=== PATIENT | female | born 1965 | race Caucasian/White ===

== ENCOUNTER 2018-02-15 10:13 | Emergency (ER) | payer BC ==
[2018-02-15] MEDS ORDERED: HYDROCODONE/APAP 5/325 MG TAB ONE (11:17)
--- NOTE | 2018-02-15 12:24 | RAD REPORT ---
EXAM DESCRIPTION: RAD - Shoulder Left 2 View - 02/15/2018 12:15 pm CLINICAL HISTORY: Left shoulder pain status post fall FINDINGS: No fracture or dislocation is seen.
--- NOTE | 2018-02-15 12:25 | RAD REPORT ---
EXAM DESCRIPTION: RAD - Humerus Left - 02/15/2018 12:15 pm CLINICAL HISTORY: Left arm pain status post fall FINDINGS: No fracture is seen
--- NOTE | 2018-02-15 13:00 | ER ---
Nurse's Notes [facility] Name: Corrine Rsoario Age: 52 yrs Sex: Female : 1965 Arrival Date: 02/15/2018 Time: 10:14 Bed 11 Private MD: JIM SALINAS Diagnosis: Strain of muscle(s) and tendon(s) of the rotator cuff of left shoulder;Strain of muscle, fascia and tendon of other parts of biceps, left arm Presentation: 02/15 10:24 Presenting complaint: Patient states: Patient reports she was texting last night, ss walked off a curb and fell from a standing position into grass onto L hand, hurting her L shoulder. Transition of care: patient was not received from another setting of care. Onset of symptoms was February 14, 2018. Risk Assessment: Do you want to hurt yourself or someone else? Patient reports no desire to harm self or others. Initial Sepsis Screen: Does the patient meet any 2 criteria? No. Patient's initial sepsis screen is negative. Does the patient have a suspected source of infection? No. Patient's initial sepsis screen is negative. Care prior to arrival: None. 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 - Social history:: Smoking status: Patient/guardian denies using tobacco. - Ebola Screening: : Patient denies exposure to infectious person Patient denies travel to an Ebola-affected area in the 21 days before illness onset. Screenin:31 Abuse screen: Denies threats or abuse. Denies injuries from another. hb 10:31 Nutritional screening: No deficits noted. Tuberculosis screening: No symptoms or risk hb factors identified. Fall Risk None identified. Assessment: 10:30 General: Appears in no apparent distress. Behavior is calm, cooperative. Pain: hb Complains of pain in left arm Pain currently is 8 out of 10 on a pain scale. Neuro: Level of Consciousness is awake, alert, obeys commands, Oriented to person, place, time, situation. Cardiovascular: Capillary refill < 3 seconds Patient's skin is warm and dry. Respiratory: Airway is patent Respiratory effort is even, unlabored, Respiratory pattern is regular, symmetrical. GI: No signs and/or symptoms were reported involving the gastrointestinal system. : No signs and/or symptoms were reported regarding the genitourinary system. EENT: No signs and/or symptoms were reported regarding the EENT system. Derm: No signs and/or symptoms reported regarding the dermatologic system. Skin is intact, is healthy with good turgor. Musculoskeletal: Reports pain in left arm. 11:30 Reassessment: Patient appears in no apparent distress at this time. No changes from hb previously documented assessment. Patient and/or family updated on plan of care and expected duration. Pain level reassessed. Patient is alert, oriented x 3, equal unlabored respirations, skin warm/dry/pink. Vital Signs: 10:26 BP 133 / 72; Pulse 75; Resp 16; Temp 98.2(O); Pulse Ox 97% on R/A; Weight 92.08 kg; ss Height 5 ft. 0 in. (152.40 cm); Pain 8/10; 10:26 Body Mass Index 39.65 (92.08 kg, 152.40 cm) ss ED Course: 10:14 Patient arrived in ED. sb2 10:14 JIM SALINAS is Private Physician. sb2 10:25 Triage completed. ss 10:26 Arm band placed on right wrist. ss 10:31 Patient has correct armband on for positive identification. Call light in reach. hb 11:00 Rio Macdonald NP is PHCP. pm1 11:00 Porfirio Lucas MD is Attending Physician. pm1 12:07 X-ray completed. Portable x-ray completed in exam room. Patient tolerated procedure la2 well. 12:14 Shoulder Left (2 View) XRAY In Process Unspecified. EDMS 12:15 Humerus Left XRAY In Process Unspecified. EDMS 12:57 Maikol Baxter MD is Referral Physician. pm1 13:01 Zuri Santana, CESILIA is Primary Nurse. hb 13:04 No provider procedures requiring assistance completed. Patient did not have IV access hb during this emergency room visit. Administered Medications: 11:15 Drug: Seltzer 5 mg-325 mg 1 tabs Route: PO; hb 13:05 Follow up: Response: No adverse reaction; Pain is decreased hb Outcome: 12:59 Discharge ordered by . pm1 13:04 Discharged to home ambulatory. 13:04 Condition: good 13:04 Discharge instructions given to patient, Instructed on discharge instructions, follow up and referral plans. medication usage, Demonstrated understanding of instructions, follow-up care, medications. 13:05 Patient left the ED. Signatures: Dispatcher [employer] EDMS Sagrario Law RN RN Rio Macdonald NP RETAIL MARKETING MANAGER pm1 Zuri Santana RN RN Michelle Senior la2 Yue Bruno sb2
--- NOTE | 2018-02-15 13:00 | EDPHYS ---
Physician Documentation [facility] Name: Corrine Rosario Age: 52 yrs Sex: Female : 1965 Arrival Date: 02/15/2018 Time: 10:14 Bed 11 Private MD: JIM SALINAS ED Physician Porfirio Lucas HPI: 02/15 11:07 This 52 yrs old Female presents to ER via Ambulatory with complaints of Fall pm1 Injury - Left shoulder. 11:07 Details of fall: The patient fell from an upright position, while walking. Onset: The pm1 symptoms/episode began/occurred last night. 11:07 Associated injuries: The patient sustained anterior aspect of left shoulder and left pm1 bicep. Severity of symptoms: in the emergency department the symptoms are unchanged. The patient has not experienced similar symptoms in the past. The patient has not recently seen a physician. Patient was walking while texting and she walked off the curb and fell. Patient feel with left hand out and complaining of pain to left shoulder and left upper arm. No headache, neck pain, head injury, or LOC. 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 - Social history:: Smoking status: Patient/guardian denies using tobacco. - Ebola Screening: : Patient denies exposure to infectious person Patient denies travel to an Ebola-affected area in the 21 days before illness onset. ROS: 11:11 Constitutional: Negative for fever, chills, and weight loss, Eyes: Negative for injury, pm1 pain, redness, and discharge, ENT: Negative for injury, pain, and discharge, Neck: Negative for injury, pain, and swelling, Cardiovascular: Negative for chest pain, palpitations, and edema, Respiratory: Negative for shortness of breath, cough, wheezing, and pleuritic chest pain, Abdomen/GI: Negative for abdominal pain, nausea, vomiting, diarrhea, and constipation, Back: Negative for injury and pain. 11:11 Skin: Negative for injury, rash, and discoloration, Neuro: Negative for headache, weakness, numbness, tingling, and seizure. 11:11 MS/extremity: Positive for pain, of the anterior aspect of left shoulder and left bicep, Negative for decreased range of motion, deformity. Exam: 11:11 Constitutional: This is a well developed, well nourished patient who is awake, alert, pm1 and in no acute distress. Head/Face: Normocephalic, atraumatic. Eyes: Pupils equal round and reactive to light, extra-ocular motions intact. Lids and lashes normal. Conjunctiva and sclera are non-icteric and not injected. Cornea within normal limits. Periorbital areas with no swelling, redness, or edema. ENT: Nares patent. No nasal discharge, no septal abnormalities noted. Tympanic membranes are normal and external auditory canals are clear. Oropharynx with no redness, swelling, or masses, exudates, or evidence of obstruction, uvula midline. Mucous membranes moist. Neck: Trachea midline, no thyromegaly or masses palpated, and no cervical lymphadenopathy. Supple, full range of motion without nuchal rigidity, or vertebral point tenderness. No Meningismus. Chest/axilla: Normal chest wall appearance and motion. Nontender with no deformity. No lesions are appreciated. Cardiovascular: Regular rate and rhythm with a normal S1 and S2. No gallops, murmurs, or rubs. Normal PMI, no JVD. No pulse deficits. Respiratory: Lungs have equal breath sounds bilaterally, clear to auscultation and percussion. No rales, rhonchi or wheezes noted. No increased work of breathing, no retractions or nasal flaring. Abdomen/GI: Soft, non-tender, with normal bowel sounds. No distension or tympany. No guarding or rebound. No evidence of tenderness throughout. Back: No spinal tenderness. No costovertebral tenderness. Full range of motion. Skin: Warm, dry with normal turgor. Normal color with no rashes, no lesions, and no evidence of cellulitis. 11:11 Musculoskeletal/extremity: Extremities: grossly normal except: ROM: full passive range of motion, in the left shoulder, Circulation is intact in all extremities. Pulses: Sensation intact. tenderness to left biceps and anterior aspect of left shoulder. 11:11 Neuro: Orientation: is normal, Motor: is normal, moves all fours. Vital Signs: 10:26 BP 133 / 72; Pulse 75; Resp 16; Temp 98.2(O); Pulse Ox 97% on R/A; Weight 92.08 kg; ss Height 5 ft. 0 in. (152.40 cm); Pain 8/10; 10:26 Body Mass Index 39.65 (92.08 kg, 152.40 cm) ss MDM: 11:00 Patient medically screened. pm1 12:57 Data reviewed: vital signs. Counseling: I had a detailed discussion with the patient pm1 and/or guardian regarding: the historical points, exam findings, and any diagnostic results supporting the discharge/admit diagnosis, radiology results, the need for outpatient follow up, to return to the emergency department if symptoms worsen or persist or if there are any questions or concerns that arise at home. 02/15 11:04 Order name: Shoulder Left (2 View) XRAY; Complete Time: 12:56 pm1 02/15 11:04 Order name: Humerus Left XRAY; Complete Time: 12:56 pm1 02/15 11:04 Order name: Sling; Complete Time: 11:27 pm1 Administered Medications: 11:15 Drug: [place] 5 mg-325 mg 1 tabs Route: PO; hb 13:05 Follow up: Response: No adverse reaction; Pain is decreased hb Disposition: 02/15/18 12:59 Discharged to Home. Impression: Strain of muscle(s) and tendon(s) of the rotator cuff of left shoulder, Strain of muscle, fascia and tendon of other parts of biceps, left arm. - Condition is Stable. - Discharge Instructions: Musculoskeletal Pain, Shoulder Pain. - Prescriptions for Tylenol- Codeine #3 300-30 mg Oral Tablet - take 2 tablets by ORAL route every 6 hours As needed; 20 tablet. Diclofenac Sodium 75 mg Oral Tablet Sustained Release - take 1 tablet by ORAL route 2 times per day; 30 tablet. - Medication Reconciliation Form, Thank You Letter, Antibiotic Education, Prescription Opioid Use form. - Follow up: Emergency Department; When: As needed; Reason: Worsening of condition. Follow up: Maikol Baxter MD; When: 2 - 3 days; Reason: Recheck today's complaints, Continuance of care, Re-evaluation by your physician. - Problem is new. - Symptoms have improved. Addendum: 02/17/2018 11:16 Co-signature as Attending Physician, Porfirio Lance MD I agree with the assessment and w a plan of care. Signatures: Dispatcher [employer] EDMS Sagrario Law RN RN ss Rio Macdonald, DIRECTOR OF OUTSIDE SALES DIRECTOR OF OUTSIDE SALES pm1 Zuri Santana RN RN hb Porfirio Lucas MD MD wa Corrections: (The following items were deleted from the chart) 02/15 13:05 12:59 02/15/2018 12:59 Discharged to Home. Impression: Strain of muscle(s) and hb tendon(s) of the rotator cuff of left shoulder; Strain of muscle, fascia and tendon of other parts of biceps, left arm. Condition is Stable. Forms are Medication Reconciliation Form, Thank You Letter, Antibiotic Education, Prescription Opioid Use. Follow up: Emergency Department; When: As needed; Reason: Worsening of condition. Follow up: Maikol Baxter; When: 2 - 3 days; Reason: Recheck today's complaints, Continuance of care, Re-evaluation by your physician. Problem is new. Symptoms have improved. pm1
== END 2018-02-15 13:05 | disposition home or self-care (01) ==
LOC: ER 10:13
DX: S46.012A Strain of muscle(s) and tendon(s) of the rotator cuff of left shoulder, initial encounter (principal); S46.212A Strain of muscle, fascia and tendon of other parts of biceps, left arm, initial encounter; W10.1XXA Fall (on)(from) sidewalk curb, initial encounter; Y93.C2 Activity, hand held interactive electronic device; Y92.480 Sidewalk as the place of occurrence of the external cause
CPT/HCPCS: 99283

== ENCOUNTER 2019-05-26 04:41 | Emergency (ER) | payer BC ==
--- OUTSIDE RECORDS SUMMARY | 2019-05-26 04:43 | XMS REPORT ---
:1965 [facility] Address [address] [place] [address] Dr. Simental [address] [place] [id number] Care Team Providers Name Role Phone Unavailable Unavailable Unavailable Problems This patient has no known problems. Allergies, Adverse Reactions, Alerts This patient has no known allergies or adverse reactions. Medications This patient has no known medications.
--- OUTSIDE RECORDS SUMMARY | 2019-05-26 04:44 | XMS REPORT | Summary of Care ---
:1965 Author Organization [facility] - Health Address [address] [place] [id number] Care Team Providers Name Role Phone Ansley Calle MD Unavailable Pamela Lemus MD Primary Care Provider Reason for Visit Reason Comments Refill Request Encounter Details Date Type Department Care Team Description 01/22/2019 Refill [facility] Pediatric and Pamela Lemus, Refill Request Adult Primary Care- [place] [address] [facility] [address] [place] [address] [place] [address] Allergies Active Allergy Reactions Severity Noted Date Comments Aspirin Unknown - See comments 07/30/2017 Sick to stomach Codeine Unknown - See comments 07/30/2017 Sick to stomach. documented as of this encounter (statuses as of 01/26/2019) Medications Medication Sig Dispensed Refills Start Date End Date Status diclofenac 75 mg EC Take 1 tablet 180 tablet 3 03/03/2018 Active tabletIndications: by mouth 2 Chronic left (two) times shoulder pain daily with meals. gabapentin 600 mg Take 1.5 135 tablet 3 05/06/2018 Active tabletIndications: tablets by Left arm pain, mouth 3 Chronic left (three) times shoulder pain, daily. Muscle spasm, Other chronic pain prazosin 1 mg Take 2 180 capsule 0 07/09/2018 Active capsuleIndications: capsules by PTSD (post-traumatic mouth at stress disorder) bedtime. mupirocin 2 % Apply to 22 g 0 09/17/2018 Active ointmentIndications: area(s) 3 Laceration of left (three) times thumb without daily. foreign body without damage to nail, initial encounter traMADOL 50 mg Take 1 tablet 84 tablet 0 12/03/2018 Active tabletIndications: by mouth Chronic low back every 8 pain, unspecified (eight) hours back pain as needed laterality, with (for pain not sciatica presence improved with unspecified, Left gabapentin). arm pain, Chronic left shoulder pain, Muscle spasm, Other chronic pain desvenlafaxine Take 1 tablet 90 tablet 1 01/09/2019 Active succinate 100 mg 24 by mouth hr daily. tabletIndications: PTSD (post-traumatic stress disorder) TIZANIDINE 4 mg TAKE 1 TABLET 90 tablet 1 01/25/2019 Active tabletIndications: BY MOUTH Chronic left EVERY 8 shoulder pain (EIGHT) HOURS NEEDED FOR PAIN (SCALE 4-6). TIZANIDINE 4 mg TAKE 1 TABLET 90 tablet 1 12/29/2018 Discontinued tabletIndications: BY MOUTH 9 Chronic left EVERY 8 shoulder pain (EIGHT) HOURS NEEDED FOR PAIN (SCALE 4-6). 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) 07/30/2017 Subacromial bursitis of left shoulder joint 07/30/2017 H/O rheumatoid arthritis 07/30/2017 Polyarthralgia 07/30/2017 Chronic fatigue 07/30/2017 documented as of this encounter (statuses as of 01/26/2019) Resolved Problems Problem Noted Date Resolved Date Pain in joint, multiple sites 07/30/2017 07/30/2017 documented as of this encounter (statuses as of 01/26/2019) Immunizations Name Administration Dates Next Due Tdap 09/13/2017 documented as of this encounter Social History Tobacco Use Types Packs/Day Years Used Date Former Smoker 0.5 10 Quit: 2011 Smokeless Tobacco: Never Used Alcohol Use Drinks/Week oz/Week Comments No Sex Assigned at Date Recorded Not on file Job Start Date Occupation Industry Not on file Not on file Not on file Travel History Travel Start Travel End No recent travel history available. documented as of this encounter Last Filed Vital Signs Not on filedocumented in this encounter Plan of Treatment Date Type Specialty Care Team Description 02/03/2019 Office Visit Internal Medicine Pamela Lemus MD [address] [place] [address] Dr Juarez [address] [place] [address] [phone] Health Maintenance Due Date Last Done Comments MAMMOGRAM 2006 COLONOSCOPY 2016 INFLUENZA VACCINE 02/22/2019 04/09/2018 Zoster Recombinant Vaccine 08/07/2019 Postponed from 2016 (SHINGRIX) (1 of 2) (Insurance / Financial) PAP SMEAR 06/24/2020 06/24/2017 (Previously completed) DTaP,Tdap,and Td Vaccines (2 09/14/2027 09/13/2017 - Td) PNEUMOCOCCAL 0-64 YEARS Aged Out No longer eligible based COMBINED SERIES on patient's age to complete this topic documented as of this encounter Results Not on filedocumented in this encounter Visit Diagnoses Diagnosis Chronic left shoulder pain Pain in joint, shoulder region documented in this encounter Insurance Payer Benefit Plan Subscriber ID Effective Dates Phone Address Type / Group [facility] [id number] 2014-Bertha [phone] [address] PPO/POS [place] - OUT OF t 7 [id number] [place] [address] documented as of this encounter
--- OUTSIDE RECORDS SUMMARY | 2019-05-26 04:44 | XMS REPORT | Summary of Care ---
:1965 Author Organization [facility] - Health Address [address] [place] [id number] Care Team Providers Name Role Phone Ansley Calle MD Unavailable Pamela Lemus MD Primary Care Provider Encounter Details Date Type Department Care Team Description 02/03/2019 Orders Only [facility] Doctor Unassigned, [address] [facility] [place] [address] [address] [place] [address] Allergies Active Allergy Reactions Severity Noted Date Comments Aspirin Unknown - See comments 07/30/2017 Sick to stomach Codeine Unknown - See comments 07/30/2017 Sick to stomach. documented as of this encounter (statuses as of 02/03/2019) Medications Medication Sig Dispensed Refills Start Date End Date Status diclofenac 75 mg EC Take 1 tablet by 180 tablet 3 03/03/2018 Active tabletIndications: mouth 2 (two) Chronic left shoulder times daily with pain meals. gabapentin 600 mg Take 1.5 tablets 135 tablet 3 05/06/2018 Active tabletIndications: by mouth 3 Left arm pain, Chronic (three) times left shoulder pain, daily. Muscle spasm, Other chronic pain prazosin 1 mg Take 2 capsules 180 capsule 0 07/09/2018 Active capsuleIndications: by mouth at PTSD (post-traumatic bedtime. stress disorder) mupirocin 2 % Apply to 22 g 0 09/17/2018 Active ointmentIndications: area(s) 3 Laceration of left (three) times thumb without foreign daily. body without damage to nail, initial encounter desvenlafaxine Take 1 tablet by 90 tablet 1 01/09/2019 Active succinate 100 mg 24 hr mouth daily. tabletIndications: PTSD (post-traumatic stress disorder) TIZANIDINE 4 mg TAKE 1 TABLET BY 90 tablet 1 01/25/2019 Active tabletIndications: MOUTH EVERY 8 Chronic left shoulder (EIGHT) HOURS pain NEEDED FOR PAIN (SCALE 4-6). traMADol 50 mg Take 1 tablet by 84 tablet 0 01/28/2019 Active tabletIndications: mouth every 8 Chronic low back pain, (eight) hours as unspecified back pain needed (for pain laterality, with not improved sciatica presence with unspecified, Left arm gabapentin). pain, Chronic left shoulder pain, Muscle spasm, Other chronic pain documented as of this encounter (statuses as of 02/03/2019) Active Problems Problem Noted Date Other chronic pain 08/28/2017 Osteopenia 08/12/2017 CRP elevated 08/07/2017 Hypovitaminosis D: 16(07/2017) 08/05/2017 Immunization counseling 07/30/2017 Long-term use of Plaquenil 07/30/2017 [facility] (current) use of systemic steroids 07/30/2017 jail current use of non-steroidal anti-inflammatories (NSAID) 07/30/2017 Subacromial bursitis of left shoulder joint 07/30/2017 H/O rheumatoid arthritis 07/30/2017 Polyarthralgia 07/30/2017 Chronic fatigue 07/30/2017 documented as of this encounter (statuses as of 02/03/2019) Resolved Problems Problem Noted Date Resolved Date Pain in joint, multiple sites 07/30/2017 07/30/2017 documented as of this encounter (statuses as of 02/03/2019) Immunizations Name Administration Dates Next Due Tdap [...] filedocumented in this encounter Plan of Treatment Health Maintenance Due Date Last Done Comments [...] this topic documented as of this encounter Procedures Procedure Name Priority Date/Time Associated Diagnosis Comments NO SHOW OR MISSED Routine 02/03/2019 7:43 AM APPOINTMENT POLICY CDT ACKNOWLEDGEMENT documented in this encounter Results Not on filedocumented in this encounter Insurance Payer Benefit Plan Subscriber ID Effective Dates Phone Address Type / Group [facility] [id number] 2014-Bertha [phone] [address] PPO/POS [place] - OUT OF t 7 [id number] [place] [address] documented as of this encounter
--- OUTSIDE RECORDS SUMMARY | 2019-05-26 04:44 | XMS REPORT | Summary of Care ---
:1965 Author Organization [facility] - Health Address [address] [place] [address] Care Team Providers Name Role Phone Ansley Calle MD Unavailable Pamela Lemus MD Primary Care Provider Reason for Visit Reason Comments Refill Request Encounter Details Date Type Department Care Team Description 01/26/2019 Refill [facility] Pediatric and Pamela Lemus, Refill Request Adult Primary Care- [place] [address] [place] [address], [address] [place] [address] [place] [address] Allergies Active Allergy Reactions Severity Noted Date Comments Aspirin Unknown - See comments 07/30/2017 Sick to stomach Codeine Unknown - See comments 07/30/2017 Sick to stomach. documented as of this encounter (statuses as of 01/29/2019) Medications Medication Sig Dispensed Refills Start Date [...] nail, initial encounter desvenlafaxine Take 1 tablet 90 tablet 1 01/09/2019 Active succinate 100 mg 24 by mouth hr daily. tabletIndications: PTSD (post-traumatic stress disorder) TIZANIDINE 4 mg TAKE 1 TABLET 90 tablet 1 01/25/2019 Active tabletIndications: BY MOUTH Chronic left EVERY 8 shoulder pain (EIGHT) HOURS NEEDED FOR PAIN (SCALE 4-6). traMADol 50 mg Take 1 tablet 84 tablet 0 01/28/2019 Active tabletIndications: by mouth Chronic low back every 8 pain, unspecified (eight) hours back pain as needed laterality, with (for pain not sciatica presence improved with unspecified, Left gabapentin). arm pain, Chronic left shoulder pain, Muscle spasm, Other chronic pain traMADOL 50 mg Take 1 tablet 84 tablet 0 12/03/2018 Discontinued tabletIndications: by mouth 9 Chronic low back every 8 pain, unspecified (eight) hours back pain as needed laterality, with (for pain not sciatica presence improved with unspecified, Left gabapentin). 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 current use of non-steroidal anti-inflammatories (NSAID) 07/30/2017 Subacromial bursitis of left shoulder joint 07/30/2017 H/O rheumatoid arthritis 07/30/2017 Polyarthralgia 07/30/2017 Chronic fatigue 07/30/2017 documented as of this encounter (statuses as of 01/29/2019) Resolved Problems Problem Noted Date Resolved Date Pain in joint, multiple sites 07/30/2017 07/30/2017 documented as of this encounter (statuses as of 01/29/2019) Immunizations Name Administration Dates Next Due Tdap [...] Office Visit Internal Medicine Pamela Lemus MD [address] [place] [address] Dr Juarez [address] [place] [address] [phone] Health Maintenance Due Date Last Done Comments [...] in this encounter Visit Diagnoses Diagnosis Chronic low back pain, unspecified back pain laterality, with sciatica presence unspecified Left arm pain Pain in limb Chronic left shoulder pain Pain in joint, shoulder region Muscle spasm Spasm of muscle Other chronic pain documented in this encounter Insurance Payer Benefit Plan Subscriber ID Effective Dates Phone Address Type / Group [facility] [id number] 2014-Bertha [phone] [address] PPO/POS [place] - OUT OF 7 [id number] [place] [address] documented as of this encounter
--- OUTSIDE RECORDS SUMMARY | 2019-05-26 04:45 | XMS REPORT | Summary of Care ---
:1965 Author Organization [facility] Address [address] [place] [address] Care Team Providers Name Role Phone Ansley Calle MD Unavailable Pamela Lemus MD Primary Care Provider Reason for Referral (Routine) Status Reason Specialty Diagnoses / Referred By Contact Referred To Procedures Contact New Request Surgery Diagnoses Colon cancer screening Allan, Procedures CONSULT/REFERRAL GENERAL SURGERY Pamela Whitaker MD [address] [place] [address] [address] [place] [address] Radiology Services (Routine) Status Reason Specialty Diagnoses / Referred By Referred To Procedures Contact Contact Authorized Diagnostic Diagnoses Encounter for screening mammogram for breast cancer Allan, Radiology Procedures BI SCREENING MAMMOGRAM BILATERAL Pamela Whitaker MD [address] [place] [address] [address] [place] [address] Reason for Visit Reason Comments Follow-up 6 MONTHS Abdominal Pain Refill Request 90 day supply for Gabapentin & Tizanidine Encounter Details Date Type Department Care Team Description 02/03/2019 Office Visit [facility] Pediatric Allan, Weight loss ( Primary Dx); and Adult Primary Pamela Whitaker MD Fear of weight gain; Care- [address] Decreased appetite; [address] [place] [address], [facility] [address] Other constipation; [address] [place] [address] Forgetfulness; [place], [place] [phone] Chronic pain of both shoulders; [id number] RLS (restless legs syndrome); [phone] Balance problem; Anxiety; Encounter for screening mammogram for breast cancer; Colon cancer screening; Dietary counseling Allergies Active Allergy Reactions Severity Noted Date Comments Aspirin Unknown - See comments 07/30/2017 Sick to stomach Codeine Unknown - See comments 07/30/2017 Sick to stomach. documented as of this encounter (statuses as of 02/08/2019) Medications Medication Sig Dispensed Refills Start Date End Date Status gabapentin 600 mg Take 1.5 135 tablet 3 05/06/2018 Active tabletIndications: tablets by Left arm pain, mouth 3 Chronic left (three) times shoulder pain, daily. Muscle spasm, Other chronic pain desvenlafaxine Take 1 tablet 90 tablet 1 01/09/2019 Active succinate 100 mg 24 by mouth hr daily. tabletIndications: PTSD (post-traumatic stress disorder) TIZANIDINE 4 mg TAKE 1 TABLET 90 tablet 1 01/25/2019 Active tabletIndications: BY MOUTH Chronic left EVERY 8 shoulder pain (EIGHT) HOURS NEEDED FOR PAIN (SCALE 4-6). QUEtiapine Take 25 mg by 0 Active (SEROQUEL) 25 mg mouth at tablet bedtime. diclofenac 75 mg EC Take 1 tablet 180 tablet 3 03/03/2018 Discontinued tabletIndications: by mouth 2 9 Chronic left (two) times shoulder pain daily with meals. prazosin 1 mg Take 2 180 capsule 0 07/09/2018 Discontinued capsuleIndications: capsules by 9 PTSD (post-traumatic mouth at stress disorder) bedtime. mupirocin 2 % Apply to 22 g 0 09/17/2018 Discontinued ointmentIndications: area(s) 3 9 Laceration of left (three) times thumb without daily. foreign body without damage to nail, initial encounter traMADol 50 mg Take 1 tablet 84 tablet 0 01/28/2019 Discontinued tabletIndications: by mouth 9 Chronic low back every 8 pain, unspecified (eight) hours back pain as needed laterality, with (for pain not sciatica presence improved with unspecified, Left gabapentin). 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 anti-inflammatories (NSAID) 07/30/2017 Subacromial bursitis of left shoulder joint 07/30/2017 H/O rheumatoid arthritis 07/30/2017 Polyarthralgia 07/30/2017 Chronic fatigue 07/30/2017 documented as of this encounter (statuses as of 02/08/2019) Resolved Problems Problem Noted Date Resolved Date Pain in joint, multiple sites 07/30/2017 07/30/2017 documented as of this encounter (statuses as of 02/08/2019) Immunizations Name Administration Dates Next Due Tdap [...] of this encounter Last Filed Vital Signs Vital Sign Reading Time Taken Comments Blood Pressure 117/74 02/03/2019 7:50 AM CDT Pulse 66 02/03/2019 7:50 AM CDT Temperature 36.4 C (97.5 F) 02/03/2019 7:50 AM CDT Respiratory Rate 18 02/03/2019 7:50 AM CDT Oxygen Saturation 99% 02/03/2019 7:50 AM CDT Inhaled Oxygen Concentration - - Weight 60.8 kg (134 lb) 02/03/2019 7:50 AM CDT Height - - Body Mass Index 26.17 01/09/2019 2:17 PM CDT documented in this encounter Patient Instructions Patient InstructionsLuly Randle 02/03/2019 7:40 AM CDT Add in more vegetables and fruits. Limit starchy vegetables to 1 serving a day total. Take in no more than 4 servings a fruit a day and at least 5 servings of vegetables a day. Try these natural antiinflammatories: Boswellia Michaela 600 mg 1-2 times daily. Turmeric 500 mg twice a day. If you get heartburn decrease to once daily. Turmeric may also cause increased bleeding and bruising. Get the turmeric with black pepper. Black pepper helps with the absorption of turmeric. 1/4 teaspoon of cinnamon daily. You can find these at "[facility]" located at [address] [place] [address] [address], [place] [address] You can look into copaiba oil. Read up on this oil. documented in this encounter Progress Notes Pamela Lemus MD - 02/03/2019 7:40 AM CDT DOS: 02/03/2019 CC: Follow up of chronic conditions HPI: Corrine Rosario is a 53 year old female with history including has a past medical history of Anxiety, Arthritis (2017), Depression, Osteoarthritis, Pap smear abnormality of cervix, Pinched cervical nerve root (2010), and Urinary incontinence. who is being seen today for follow up of chronic conditions. Patient states she's been having a lot of trouble eating. She lost about 70 pounds this last year. She states she doesn't want to eat because she's scared she's going to gain the weight back. Patient daughter states all she wants to eat is fruit. Patient states she just doesn't have an appetite. She states her biggest fear is gaining weight. She is tearful talking about this. She states she weighs herself everyday. Patient states she gets constipated. She states she has some abd pain after she eats. Patient complains of forgetfulness. She states she's had this issue for about 6 or 7 months. Patient states she takes all her medication once daily in the morning. She states she has no pain inher back since she lost weight. She states she has pain in her shoulders, arms, and knees due to arthritis. She states in the past she's had injections in her shoulder which helped with the pain. She has not tried tried otc natural antiinflammatories. She states she smokes vape and sometimes smokes CBD oil which helps with her pain. She states she also makes tea with the stems from her marijuana plant and states this also helps with pain. Patient complains of restless legs. She states this has been going on for a while. Patient states she feels like the Seroquel helps balance her mood out. She states her granddaughter is about to start school again so she is going to be home alone. She worries about being alone but states the seroquel is helping her deal with this. She states the tizanidine also helps calm her down. Health Maintenance Patient is due for mammogram and colon cancer screening. Medications reviewed in EPIC, past medical history and social history and allergies reviewed. Review of Systems Constitutional: Positive for appetite change and weight loss. Respiratory: Negative for shortness of breath. Cardiovascular: Negative for chest pain. Gastrointestinal: Positive for constipation. Musculoskeletal: Negative for back pain. + bilateral shoulder pain Endocrine: Positive for weight loss. PE: Blood pressure 117/74, pulse 66, temperature 36.4 C (97.5 F), temperature source Temporal Artery, resp. rate 18, weight 134 lb (60.8 kg), SpO2 99 %. Physical Exam Constitutional: She is oriented to person, place, and time. She appears well- developed and well-nourished. No distress. HENT: Head: Normocephalic and atraumatic. Right Ear: External ear normal. Left Ear: External ear normal. Nose: Nose normal. No tracheal deviation Eyes: Right eye exhibits no discharge. Left eye exhibits no discharge. No scleral icterus. Left and right eyelids normal. Neurological: She is alert and oriented to person, place, and time. No tremors. Normal gait. Skin: Skin is warm and dry. She is not diaphoretic. Psychiatric: She has a normal mood and affect. Her behavior is normal. Pleasant. Vitals reviewed. Results: No new labs A/P: Corrine Rosario is a 53 year old female with history including has a past medical history of Anxiety, Arthritis (2017), Depression, Osteoarthritis, Pap smear abnormality of cervix, Pinched cervical nerve root (2011), and Urinary incontinence. who is being seen today for chronic medical conditions. Weight loss (primary encounter diagnosis), Fear of weight gain, Decreased appetite Comment: she fears gaining weight and doesn't eat a lot. Plan: dietary counseling. Other constipation Comment: most likely due to poor diet. Plan: dietary counseling. Forgetfulness Comment: could be due to poor diet. Will also check vitamin levels. Discussed diet with patient. Plan: VITAMIN B1 (THIAMINE), WHOLE BLOOD, VITAMIN B12, LEVEL, VITAMIN B6, PLASMA, HOMOCYSTEINE, FOLATE, VITAMIN D, 25-OH, ZINC, SERUM Chronic pain of both shoulders Comment: pain not controlled. She's had injections in the past which helped. Plan: discussed boswellia and turmeric, patient will try this first. Next vist will discuss joint injections if otc natural antiinflammatories don't work RLS (restless legs syndrome) Comment: will check labs. Plan: TOTAL IRON BINDING CAPACITY, FERRITIN SERUM, IRON, VITAMIN B1 (THIAMINE), WHOLE BLOOD, VITAMIN B12, LEVEL, VITAMIN B6, PLASMA, HOMOCYSTEINE, FOLATE, VITAMIN D, 25-OH, ZINC, SERUM Balance problem Comment: will check labs. Plan: VITAMIN B1 (THIAMINE), WHOLE BLOOD, VITAMIN B12, LEVEL, VITAMIN B6, PLASMA, FOLATE Anxiety Comment: she does well on seroquel. She states tizanidine also helps calm her down. Plan: monitor. Encounter for screening mammogram for breast cancer Comment: patient is due for mammogram. Plan: BI SCREENING MAMMOGRAM BILATERAL Colon cancer screening Comment: patient is due for colon cancer screening. Plan: CONSULT/REFERRAL GENERAL SURGERY Dietary counseling Comment: dietary counseling for fear of gaining weight. Plan: discussed the importance of eating healthy. Also discussed serving sizes of fruits and vegetables. Patient was provided with information on after visit summary. Return for follow up in 6-8 weeks for appetite and pain. Plan of care, desired health behaviors, goals,& medication discussed with patient and educational resources and self management tools provided as appropriate. Patient/family/guardian voices understanding. Patient verbalized understanding & agrees to plan of care. Barriers to care: none Ability to manage care: good Scribe's Attestation ILuly , am scribing for, and in the presence of, Pamela Lemus MD who performed the services described here-in. Luly Randle, February 03, 2019, 8:23 AM Physician's Attestation Pamela Alexis MD, personally performed the services described in this documentation , asscribed by, Luly Randle in my presence and it is both accurate and complete. Pamela Lemus MD February 08, 2019, 3:09 PM documented in this encounter Plan of Treatment Date Type Specialty Care Team Description 02/11/2019 Appointment Radiology Pamela Lemus MD [address] [place] [address] [id number] 02/19/2019 Office Visit Surgery Jenny Rodrígeuz MD [address] [facility] [address] [place] [address] [phone] 03/26/2019 Office Visit Internal Medicine Pamela Lemus MD [address] [place] [address] Dr [address] [place] [address] [phone] Name Type Priority Associated Diagnoses Order Schedule TOTAL IRON BINDING LAB Routine RLS (restless legs Ordered: 02/03/2019 CAPACITY syndrome) FERRITIN SERUM LAB Routine RLS (restless legs Ordered: 02/03/2019 syndrome) IRON LAB Routine RLS (restless legs Ordered: 02/03/2019 syndrome) VITAMIN B1 (THIAMINE), LAB Routine Forgetfulness Ordered: 02/03/2019 WHOLE BLOOD RLS (restless legs syndrome) Balance problem VITAMIN B12, LEVEL LAB Routine Forgetfulness Ordered: 02/03/2019 RLS (restless legs syndrome) Balance problem VITAMIN B6, PLASMA LAB Routine Forgetfulness Ordered: 02/03/2019 RLS (restless legs syndrome) Balance problem HOMOCYSTEINE LAB Routine Forgetfulness Ordered: 02/03/2019 RLS (restless legs syndrome) FOLATE LAB Routine Forgetfulness Ordered: 02/03/2019 RLS (restless legs syndrome) Balance problem VITAMIN D, 25-OH LAB Routine Forgetfulness Ordered: 02/03/2019 RLS (restless legs syndrome) ZINC, SERUM LAB Routine Forgetfulness Ordered: 02/03/2019 RLS (restless legs syndrome) BI SCREENING MAMMOGRAM IMAGING Routine Encounter for screening Expected: BILATERAL mammogram for breast 02/03/2019, Expires: cancer 04/05/2020 Health Maintenance Due Date Last Done Comments MAMMOGRAM 2006 COLONOSCOPY 2016 INFLUENZA VACCINE (#1) 2019 04/09/2018 Zoster Recombinant Vaccine 08/07/2019 Postponed from 2016 (SHINGRIX) (1 of 2) (Insurance / Financial) PAP SMEAR 06/24/2020 06/24/2017 (Previously completed) DTaP,Tdap,and Td Vaccines (2 09/14/2027 09/13/2017 - Td) PNEUMOCOCCAL 0-64 YEARS Aged Out No longer eligible based COMBINED SERIES on patient's age to complete this topic documented as of this encounter Results Not on filedocumented in this encounter Visit Diagnoses Diagnosis Weight loss - Primary Loss of weight Fear of weight gain Other disorder of eating of nonorganic origin Decreased appetite Anorexia Other constipation Forgetfulness Other general symptoms Chronic pain of both shoulders Pain in joint, shoulder region RLS (restless legs syndrome) Restless legs syndrome (RLS) Balance problem Other symptoms involving nervous and musculoskeletal systems Anxiety Anxiety state, unspecified Encounter for screening mammogram for breast cancer Colon cancer screening Special screening for malignant neoplasms, colon Dietary counseling Dietary surveillance and counseling documented in this encounter Insurance Payer Benefit Plan Subscriber ID Effective Dates Phone Address Type / Group BCBS [facility] [id number] 2014-Bertha [phone] [address] PPO/POS [place] - OUT OF t 7 [id number] [place] [address] (Home) [place] [address] documented as of this encounter
--- OUTSIDE RECORDS SUMMARY | 2019-05-26 04:45 | XMS REPORT | Summary of Care ---
:1965 Author Organization [facility] Address [address] [place] [address] Care Team Providers Name Role Phone Ansley Calle MD Unavailable Pamela Lemus MD Primary Care Provider Reason for Referral (Routine) Status Reason Specialty Diagnoses / Referred By Contact Referred To Procedures Contact New Request Surgery Diagnoses Colon cancer screening Allan, Procedures CONSULT/REFERRAL GENERAL SURGERY Pamela Whitaker MD [address] [place] [address] [address] [place] [address] Radiology Services (Routine) Status Reason Specialty Diagnoses / Referred By Referred To Procedures Contact Contact Authorized Diagnostic Diagnoses Encounter for screening mammogram for breast cancer Allan, Radiology Procedures BI SCREENING MAMMOGRAM BILATERAL Pamela Whitaker MD [address] [place] [address] [address] [place] [address] Reason for Visit Reason Comments Follow-up 6 MONTHS Abdominal Pain Refill Request 90 day supply for Gabapentin & Tizanidine Encounter Details Date Type Department Care Team Description 02/03/2019 Office Visit [facility] Pediatric Allan, Weight loss ( Primary Dx); and Adult Primary Pamela Whitaker MD Fear of weight gain; Care- [address] Decreased appetite; [address] [place] [address], [facility] [address] Other constipation; [address] [place] [address] Forgetfulness; [place], [place] [phone] Chronic pain of both shoulders; [id number] RLS (restless legs syndrome); [phone] Balance problem; Anxiety; Encounter for screening mammogram [...] counseling 07/30/2017 Long-term use of Plaquenil 07/30/2017 skilled nursing (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 Read [...] Description 02/11/2019 Appointment Radiology Pamela Lemus MD [address] [place] [address] [id number] 02/19/2019 Office Visit Surgery Jenny Rodríguez MD [address] [facility] [address] [place] [address] [phone] 03/26/2019 Office Visit Internal Medicine Pamela Lemus MD [address] [place] [address] Dr [address] [place] [address] [phone] Name Type Priority Associated Diagnoses Order Schedule [...] Dates Phone Address Type / Group BCBS [facility] [id number] 2014-Bertha [phone] [address] PPO/POS [place] - OUT OF t 7 [id number] [place] [address] (Home) [place] [address] documented as of this encounter
--- OUTSIDE RECORDS SUMMARY | 2019-05-26 04:45 | XMS REPORT | Summary of Care ---
:1965 Author Organization [facility] - Health Address [address] [place] [id number] Care Team Providers Name Role Phone Ansley Calle MD Unavailable Pamela Lemus MD Primary Care Provider Reason for Visit Reason Comments Fall x 2 days Back Pain after fall x 2 days Sore Throat Cough Encounter Details Date Type Department Care Team Description 03/04/2019 Office Visit [facility], Juvenal C III, Upper respiratory tract infection, unspecified type (Primary Dx); and Adult Primary MD Immunization counseling Care- [address] [place] [id number] [place], [place] [phone] Allergies Active Allergy Reactions Severity Noted Date Comments Aspirin Unknown - See comments 07/30/2017 Sick to stomach Codeine Unknown - See comments 07/30/2017 Sick to stomach. documented as of this encounter (statuses as of 03/04/2019) Medications Medication Sig Dispensed Refills Start Date End Date Status gabapentin 600 mg Take 1.5 135 tablet 3 05/06/2018 Active tabletIndications: Left tablets by arm pain, Chronic left mouth 3 shoulder pain, Muscle (three) spasm, Other chronic times daily. pain desvenlafaxine Take 1 90 tablet 1 01/09/2019 Active succinate 100 mg 24 hr tablet by tabletIndications: PTSD mouth daily. (post-traumatic stress disorder) TIZANIDINE 4 mg TAKE 1 90 tablet 1 01/25/2019 Active tabletIndications: TABLET BY Chronic left shoulder MOUTH EVERY pain 8 (EIGHT) HOURS NEEDED FOR PAIN (SCALE 4-6). Methylprednisolone 4 mg Take 1 10 tablet 0 03/04/2019 03/09/20 Active tabletIndications: tablet by 19 Upper respiratory tract mouth every infection, unspecified 12 (twelve) type hours for 5 days. benzonatate (TESSALON Take 1 21 capsule 0 03/04/2019 Active PERLES) 100 mg capsule by capsuleIndications: mouth 3 Upper respiratory tract (three) infection, unspecified times daily. type fluticasone propionate Use 1 Ulm 16 g 2 03/04/2019 Active 50 mcg/actuation nasal in each sprayIndications: Upper nostril 2 respiratory tract (two) times infection, unspecified daily. type QUEtiapine (SEROQUEL) Take 25 mg 0 03/04/20 Discontinued 25 mg tablet by mouth at 19 bedtime. 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 non-steroidal anti-inflammatories (NSAID) 07/30/2017 Subacromial bursitis of left shoulder joint 07/30/2017 H/O rheumatoid arthritis 07/30/2017 Polyarthralgia 07/30/2017 Chronic fatigue 07/30/2017 documented as of this encounter (statuses as of 03/04/2019) Resolved Problems Problem Noted Date Resolved Date Pain in joint, multiple sites 07/30/2017 07/30/2017 documented as of this encounter (statuses as of 03/04/2019) Immunizations Name Administration Dates Next Due Tdap [...] Sign Reading Time Taken Comments Blood Pressure 96/60 03/04/2019 7:48 AM CDT Pulse 69 03/04/2019 7:48 AM CDT Temperature 36.8 C (98.2 F) 03/04/2019 7:48 AM CDT Respiratory Rate 18 03/04/2019 7:48 AM CDT Oxygen Saturation 98% 03/04/2019 7:48 AM CDT Inhaled Oxygen Concentration - - Weight 60.7 kg (133 lb 14.4 oz) 03/04/2019 7:48 AM CDT Height - - Body Mass Index 26.15 01/09/2019 2:17 PM CDT documented in this encounter Progress Notes Juvenal Hoyt III, MD - 03/04/2019 7:20 AM CDT Cc: Chief Complaint Patient presents with Fall x 2 days Back Pain after fall x 2 days Sore Throat Cough Corrine Rosario is a 53 year old female. Cough Cough characteristics: Dry and hacking Severity: Mild Onset quality: Sudden Duration: 1 day Timing: Intermittent Progression: Unchanged Chronicity: Recurrent Smoker: no Context: sick contacts and upper respiratory infection Relieved by: None tried Associated symptoms: sore throat Associated symptoms: no fever, no headaches, no rash, no shortness of breath and no wheezing Medications Outpatient Medications Prior to Visit Medication Sig Dispense Refill QUEtiapine (SEROQUEL) 25 mg tablet Take 25 mg by mouth at bedtime. TIZANIDINE 4 mg tablet TAKE 1 TABLET BY MOUTH EVERY 8 (EIGHT) HOURS NEEDED FOR PAIN (SCALE 4-6). 90 tablet 1 desvenlafaxine succinate 100 mg 24 hr tablet Take 1 tablet by mouth daily. 90 tablet 1 gabapentin 600 mg tablet Take 1.5 tablets by mouth 3 (three) times daily. 135 tablet 3 No facility-administered medications prior to visit. Review of Systems Constitutional: Negative for fatigue, fever and unexpected weight change. Lost 70 lbs this yr on "crash diet" HENT: Positive for congestion and sore throat. Eyes: Negative for redness. Respiratory: Positive for cough. Negative for shortness of breath and wheezing. Cardiovascular: Negative for leg swelling. Gastrointestinal: Negative for abdominal pain. Genitourinary: Negative for dysuria. Musculoskeletal: Positive for back pain. Fall 2 days ago at home Skin: Negative for rash. Neurological: Negative for headaches. Psychiatric/Behavioral: Negative for dysphoric mood. Stopped seroquel 3 weeks ago Hematological: Negative for adenopathy. Does not bruise/bleed easily. Vital Signs BP 96/60 (BP Location: Left arm, Patient Position: Sitting, BP CUFF SIZE: Adult Medium) | Pulse 69| Temp 36.8 C (98.2 F) (Oral) | Resp 18 | Wt 133 lb 14.4 oz (60.7 kg) | SpO2 98% | BMI 26.15kg/m Physical Exam Constitutional: She appears well-nourished. Old appearing female HENT: Head: Normocephalic. Nose: Mucosal edema and rhinorrhea present. Mouth/Throat: Abnormal dentition. Eyes: Pupils are equal, round, and reactive to light. Conjunctivae are normal. Neck: Neck supple. Cardiovascular: Regular rhythm. Pulmonary/Chest: Effort normal. Musculoskeletal: Normal range of motion. She exhibits no edema. Lymphadenopathy: She has no cervical adenopathy. Neurological: She is alert. Skin: Skin is warm and dry. No rash noted. Psychiatric: She has a normal mood and affect. Vitals reviewed. Assessment/Plan 2. Upper respiratory tract infection, unspecified type - Methylprednisolone 4 mg tablet; Take 1 tablet by mouth every 12 (twelve) hours for 5 days. Dispense: 10 tablet; Refill: 0 - benzonatate (TESSALON PERLES) 100 mg capsule; Take 1 capsule by mouth 3 (three ) times daily. Dispense: 21 capsule; Refill: 0 - fluticasone propionate 50 mcg/actuation nasal spray; Use 1 Ulm in each nostril 2 (two) times daily. Dispense: 16 g; Refill: 2 hydration and green teaElectronically signed by Juvenal Hoyt III, MD at 2018 8:10 AM CDTdocumented in this encounter Plan of Treatment Date Type Specialty Care Team Description 03/26/2019 Office Visit Internal Medicine Pamela Lemus MD [address] [place] [address] Dr [place] [place] [id number] [phone] Health Maintenance Due Date Last Done Comments [...] filedocumented in this encounter Visit Diagnoses Diagnosis Upper respiratory tract infection, unspecified type - Primary Immunization counseling documented in this encounter Insurance Payer Benefit Plan Subscriber ID Effective Dates Phone Address Type / Group [facility] [id number] 2014-Bertha [phone] [address] PPO/POS [place] - OUT OF t [id number] [place] [address] (Talent) [place] [address] documented as of this encounter
--- OUTSIDE RECORDS SUMMARY | 2019-05-26 04:45 | XMS REPORT | Clinical Summary ---
:1965 Author Organization [facility] Address [address] [place] [address] Care Team Providers Name Role Phone Ansley Calle MD Unavailable Pamela Lemus MD Primary Care Provider Allergies Active Allergy Reactions Severity Noted Date Comments Aspirin Unknown - See comments 07/30/2017 Sick to stomach Codeine Unknown - See comments 07/30/2017 Sick to stomach. Medications Medication Sig Dispensed Refills Start Date End Date Status desvenlafaxine Take 1 tablet 90 tablet 1 01/09/2019 Active succinate 100 mg 24 hr by mouth tabletIndications: daily. PTSD (post-traumatic stress disorder) benzonatate (TESSALON Take 1 capsule 21 capsule 0 03/04/2019 Active PERLES) 100 mg by mouth 3 capsuleIndications: (three) times Upper respiratory daily. tract infection, unspecified type fluticasone propionate Use 1 [place] in 16 g 2 03/04/2019 Active 50 mcg/actuation nasal each nostril 2 sprayIndications: (two) times Upper respiratory daily. tract infection, unspecified type TIZANIDINE 4 mg TAKE 1 TABLET 90 tablet 1 03/16/2019 Active tabletIndications: BY MOUTH EVERY Chronic left shoulder 8 (EIGHT) pain HOURS NEEDED FOR PAIN (SCALE 4-6). GABAPENTIN 600 mg TAKE 1.5 135 tablet 1 04/13/2019 Active tabletIndications: TABLETS BY Left arm pain, Chronic MOUTH 3 left shoulder pain, (THREE) TIMES Muscle spasm, Other DAILY. chronic pain gabapentin 600 mg Take 1.5 135 tablet 3 04/14/2019 Active tabletIndications: tablets by Left arm pain, Chronic mouth 3 left shoulder pain, (three) times Muscle spasm, Other daily. chronic pain Lactobacill Take 1 capsule 14 capsule 0 04/15/2019 04/29/2019 Active 46-B.animal-inulin 10 by mouth daily billion cell -100 mg for 14 days. CapIndications: Urinary tract infection without hematuria, site unspecified azithromycin 1 % Place 1 Drop 2.5 mL 0 04/15/2019 04/20/2019 ophthalmic in left eye dropsIndications: daily for 5 Acute bacterial days. Apply 1 conjunctivitis of left drop into left eye eye twice on day 1, then once daily for 4 days ciprofloxacin HCl 500 Take 1 tablet 14 tablet 0 04/15/2019 04/22/2019 mg tabletIndications: by mouth 2 Urinary tract (two) times infection without daily for 7 hematuria, site days. unspecified phenazopyridine Take 2 tablets 12 tablet 0 04/15/2019 04/17/2019 (PYRIDIUM) 100 mg by mouth 3 tabletIndications: (three) times Dysuria, Urinary tract daily for 2 infection without days. 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 07/30/2017 senior care current use of non-steroidal anti-inflammatories (NSAID) 07/30/2017 Subacromial bursitis of left shoulder joint 07/30/2017 H/O rheumatoid arthritis 07/30/2017 Polyarthralgia 07/30/2017 Chronic fatigue 07/30/2017 Resolved Problems Problem Noted Date Resolved Date Pain in joint, multiple sites 07/30/2017 07/30/2017 Encounters Date Type Specialty Care Team Description 04/17/2019 Telephone Family Medicine Allan, Authorization Pamela Whitaker MD (requesting PA) 04/15/2019 Office Visit Family Medicine Anshul Howard, Urinary tract infection without hematuria, site unspecified (Primary Dx); Acute bacterial conjunctivitis of left eye; Need for influenza vaccination; Dysuria 04/12/2019 Refill Internal Medicine Allan, Refill Request Pamela Whitaker MD 04/08/2019 Refill Internal Medicine Allan Refill Request Pamela Whitaker MD 03/13/2019 Refill Family Medicine Allan, Refill Request Pamela Whitaker MD 03/04/2019 Office Visit Family Medicine Juvenal Hoyt Upper respiratory tract infection, unspecified type (Primary Dx); MD KAYLIN Immunization counseling 02/17/2019 Telephone Surgery Summer Guallpa Screening [employer]ATE 02/11/2019 Hospital Encounter Radiology Allan, No Show Pamela Whitaker MD 02/03/2019 Office Visit Internal Medicine Allan, Weight loss (Primary Dx); Pamela Whitaker MD Fear of weight gain; Decreased appetite; Other constipation; Forgetfulness; Chronic pain of both shoulders; RLS (restless legs syndrome); Balance problem; Anxiety; Encounter for screening mammogram for breast cancer; Colon cancer screening; Dietary counseling 02/03/2019 Orders Only Doctor Unassigned, [place] 01/26/2019 Refill Internal Medicine Allan, Refill Request Pamela Whitaker MD 01/22/2019 Refill Family Medicine Allan Refill Request Pamela Whitaker MD from Last 3 Months Immunizations Name Administration Dates Next Due Influenza Virus Vaccine Quad .5 mL IM 6+ MO 04/15/2019 Tdap 09/13/2017 Family History Medical History Relation Name Comments [place] (myocardial infarction) Father Arthritis Maternal Grandmother RA Arthritis Mother Cancer Mother stomach or ovarian not sure what kind Depression Mother Diabetes Mother Cancer Paternal Grandfather lung Cancer Paternal Grandmother neck Asthma NoFHx defects NoFHx Breast Cancer NoFHx Colon Cancer NoFHx Genetic NoFHx Heart NoFHx High cholesterol NoFHx Hypertension NoFHx Mental retardation NoFHx Neurological NoFHx Osteoporosis NoFHx Ovarian Cancer NoFHx Psychiatry NoFHx Uterine Cancer NoFHx Relation Name Status Comments Father Maternal Grandmother Mother Paternal Grandfather Paternal Grandmother Social History Tobacco Use Types Packs/Day Years Used Date Former Smoker 0.5 10 Quit: 2011 Smokeless Tobacco: Never Used Alcohol Use Drinks/Week oz/Week Comments No Sex Assigned at Date Recorded Not on file Job Start Date Occupation Industry Not on file Not on file Not on file Travel History Travel Start Travel End No recent travel history available. Last Filed Vital Signs Vital Sign Reading Time Taken Comments Blood Pressure 101/66 04/15/2019 3:07 PM CDT Pulse 69 04/15/2019 3:07 PM CDT Temperature 36.8 C (98.2 F) 04/15/2019 3:07 PM CDT Respiratory Rate 15 04/15/2019 3:07 PM CDT Oxygen Saturation 99% 04/15/2019 3:07 PM CDT Inhaled Oxygen Concentration - - Weight 62.8 kg (138 lb 8 oz) 04/15/2019 3:07 PM CDT Height 152.4 cm (5') 04/15/2019 3:07 PM CDT Body Mass Index 27.05 04/15/2019 3:07 PM CDT Plan of Treatment Date Type Specialty Care Team Description 04/28/2019 Office Visit Internal Medicine Pamela Lemus MD [address] [place] [address] Dr Juarez [address] [place] [id number] Health Maintenance Due Date Last Done Comments Breast Cancer Screening 2006 (MAMMOGRAM) COLONOSCOPY 2016 Zoster Recombinant Vaccine 08/07/2019 Postponed from 2016 (SHINGRIX) (1 of 2) (Insurance / Financial) PAP SMEAR 06/24/2020 06/24/2017 (Previously completed) DTaP,Tdap,and Td Vaccines (2 09/14/2027 09/13/2017 - Td) INFLUENZA VACCINE Completed 04/15/2019, 04/09/2018 PNEUMOCOCCAL 0-64 YEARS Aged Out No longer eligible based COMBINED SERIES on patient's age to complete this topic Procedures Procedure Name Priority Date/Time Associated Comments Diagnosis URINE CULTURE Routine 04/15/2019 3:25 Dysuria Results for this PM CDT procedure are in the results section. POCT URINALYSIS Routine 04/15/2019 3:22 Need for influenza Results for this PM CDT vaccination procedure are in Dysuria the results section. FLU VACC ([id number]), Routine 04/15/2019 3:10 Need for influenza 6+ MONTHS, IM, QUAD PM CDT vaccination ZINC, SERUM Routine 03/04/2019 8:48 Forgetfulness Results for this AM CDT RLS (restless legs procedure are in syndrome) the results section. VITAMIN D, 25-OH Routine 03/04/2019 8:48 Forgetfulness Results for this AM CDT RLS (restless legs procedure are in syndrome) the results section. FOLATE Routine 03/04/2019 8:48 Forgetfulness Results for this AM CDT RLS (restless legs procedure are in syndrome) the results Balance problem section. HOMOCYSTEINE Routine 03/04/2019 8:48 Forgetfulness Results for this AM CDT RLS (restless legs procedure are in syndrome) the results section. VITAMIN B6, PLASMA Routine 03/04/2019 8:48 Forgetfulness Results for this AM CDT RLS (restless legs procedure are in syndrome) the results Balance problem section. VITAMIN B12, LEVEL Routine 03/04/2019 8:48 Forgetfulness Results for this AM CDT RLS (restless legs procedure are in syndrome) the results Balance problem section. VITAMIN B1 (THIAMINE), Routine 03/04/2019 8:48 Forgetfulness Results for this WHOLE BLOOD AM CDT RLS (restless legs procedure are in syndrome) the results Balance problem section. IRON Routine 03/04/2019 8:48 RLS (restless legs Results for this AM CDT syndrome) procedure are in the results section. FERRITIN SERUM Routine 03/04/2019 8:48 RLS (restless legs Results for this AM CDT syndrome) procedure are in the results section. TOTAL IRON BINDING Routine 03/04/2019 8:48 RLS (restless legs Results for this CAPACITY AM CDT syndrome) procedure are in the results section. [facility] PATIENT FINANCIAL Routine 02/03/2019 7:43 POLICY AM CDT NO SHOW OR MISSED Routine 02/03/2019 7:43 APPOINTMENT POLICY AM CDT ACKNOWLEDGEMENT from Last 3 Months Results URINE CULTURE (04/15/2019 3:25 PM CDT) URINE CULTURE 10,000 - 100,000 [facility] CFU/mL mixed aerobic SERVICES organisms - suggests endogenous microbial contamination Specimen Urine - URINE, CLEAN CATCH Performing Organization Address City/State/Zipcode Phone Number [facility] CLIA: [id number], [address] [place], [place] [phone] [facility] POCT URINALYSIS W SPECIFIC GRAVITY (04/15/2019 3:22 PM CDT) POCT U SP GRAV 1.030 (A) 1.005 - 1.025 mg/dl POCT PH U 5 5 - 8 mg/dl POCT U LEUK EST small Negative - Negative POCT U NIT positive Negative - Negative POCT U PROT 30 Negative - Negative POCT U GLU negative Negative - Negative POCT U KETONE negative Negative - Negative POCT U UROBILI 0.2 0.2 - 1 mg/dl POCT U BILI normal Negative - Negative POCT U BLD moderate Negative - Negative POCT U COLOR yellow POCT U APPEAR clear Specimen Urine - URINE, CLEAN CATCH VITAMIN B1 (THIAMINE), WHOLE BLOOD (03/04/2019 8:48 AM CDT) Pathologist [facility] Vitamin B1, Whole 94 70 - 180 [facility] Blood Comment: nmol/L INTERPRETIVE INFORMATION: Vitamin B1, Whole Blood This assay measures the concentration of thiamine diphosphate (TDP), the primary active form of vitamin B1. Approximately 90 percent of vitamin B1 present in whole blood is TDP. Thiamine and thiamine monophosphate, which comprise the remaining 10 percent, are not measured. Test developed and characteristics determined by [facility]. See Compliance Statement B: [email or web address] Performed by [facility], [address] [place], [place] [id number] [email or web address], Cj Monteiro MD, Lab. Director Specimen Blood Performing Organization Address [facility]/Zipcode Phone Number [facility] [address] [place] [address] VITAMIN D, 25-OH (03/04/2019 8:48 AM CDT) VIT D 25OH 44 25 - 80 ng/mL [facility] 25-Hydroxy D3 44.2 ng/mL [facility] 25-Hydroxy D2 <2.5 ng/mL [facility] Specimen Blood Narrative Performed At Test developed and characteristics determined by [facility] Laboratory Services. Performing Organization Address City/State/Zipcode Phone Number [facility] CLIA: [id number], [address] [place], [place] [phone] HOMOCYSTEINE (03/04/2019 8:48 AM CDT) Homocysteine 10.4 4.7 - 12.6 umol/L [facility] Specimen Blood Performing Organization Address City/State/[facility] Phone Number [facility] CLIA: [id number], [address] [place] [address] [facility] TOTAL IRON BINDING CAPACITY (03/04/2019 8:48 AM CDT) TIBC 279 250 - 410 ug/dL [facility] % FE SAT 16 (L) 20 - 50 % [facility] Specimen Blood Performing Organization Address City/[facility] Phone Number [facility] CLIA: [id number], [address] [place] [address] FOLATE (03/04/2019 8:48 AM CDT) FOLATE SER 8.2 3.0 - 20.0 ng/mL [facility] Specimen Blood Performing Organization Address [facility] Phone Number [facility] CLIA: [id number], [address] [place] [address] [phone] [facility] VITAMIN B12, LEVEL (03/04/2019 8:48 AM CDT) VIT B12 259 240 - 930 pg/mL [facility] Specimen Blood Narrative Performed At Biotin has been reported to cause a positive bias, interpret [facility] results relative to patient's use of biotin. Performing Organization Address City/[facility] Phone Number [facility] CLIA: [id number], [address] [place] [address] [facility] IRON (03/04/2019 8:48 AM CDT) IRON 46 (L) 50 - 160 ug/dL [facility] Specimen Blood Performing Organization Address [facility] Phone Number [facility] CLIA: [id number], [address] [place] [address] FERRITIN SERUM (03/04/2019 8:48 AM CDT) FERRITIN 73.9 11.0 - 264.0 ng/mL [facility] Specimen Blood Narrative Performed At Biotin has been reported to cause a negative [facility] bias, interpret results relative to patient's use of biotin. Performing Organization Address City/[facility] Centercode Phone Number [facility] CLIA: [id number], [address] [place] [address] [facility] VITAMIN B6, PLASMA (03/04/2019 8:48 AM CDT) VIT B6 20.9 20.0 - 125.0 [place] Comment: nmol/L INTERPRETIVE INFORMATION: Vitamin B6 (Pyridoxal 5-Phosphate) Pyridoxal 5'-phosphate measured in a specimen collected following an 8-hour or overnight fast accurately indicates vitamin B6 nutritional status. Non-fasting specimen concentration reflects recent vitamin intake. Test developed and characteristics determined by [facility]. See Compliance Statement B: [employer]/CS Performed by [facility], [address] [place] [id number] [email or web address], Cj Monetiro MD, Lab. Director Specimen Blood Performing Organization Address [facility] Phone Number [facility] [address] [place] [address] ZINC, SERUM (03/04/2019 8:48 AM CDT) ZINC 62.5 60.0 - 120.0 [facility] Comment: ug/dL INTERPRETIVE INFORMATION: Zinc, Serum or Plasma Elevated results may be due to skin or collection-related contamination, including the use of a noncertified metal-free collection/transport tube. If contamination concerns exist due to elevated levels of serum/plasma zinc, confirmation with a second specimen collected in a certified metal-free tube is recommended. Circulating zinc concentrations are dependent on albumin status and are depressed with malnutrition. Zinc may also be lowered with infection, inflammation, stress, oral contraceptives, and . Zinc may be elevated with zinc supplementation or fasting. Elevated zinc concentrations may interfere with copper absorption. Test developed and characteristics determined by [facility]. See Compliance Statement B: [employer]/CS Performed by [facility], [address] [place] [address] www.[email or web address], Cj Monteiro MD, Lab. Director Specimen Blood Performing Organization Address [facility] Phone Number [facility] [address] [place] [address] [facility] PATIENT FINANCIAL POLICY (02/03/2019 7:43 AM CDT) Specimen Performing Organization Address [facility]/State/Zipcode Phone Number HIM NO SHOW OR MISSED APPOINTMENT POLICY ACKNOWLEDGEMENT (02/03/2019 7:43 AM CDT) Specimen Performing Organization Address City/State/Zipcode Phone Number HIM from Last 3 Months Insurance Payer Benefit Plan Subscriber ID Effective Dates Phone Address Type / Group BCBS OF [facility] [id number] 2014-Bertha [phone] [address] PPO/POS [place] - OUT OF t 7 [id number] [place] [address] (Home) [place] [address]
--- OUTSIDE RECORDS SUMMARY | 2019-05-26 04:45 | XMS REPORT | Summary of Care ---
:1965 Author Organization [facility] Address [address] [place] [address] Care Team Providers Name Role Phone Ansley Calle MD Unavailable Pamela Lemus MD Primary Care Provider Reason for Visit Reason Comments Screening Encounter Details Date Type Department Care Team Description 02/17/2019 Telephone [facility] Surgical Summer Guallpa FNP Screening Specialties - [place] [address] [facility] [address] [facility], [address] [place] [address] [place] [address] Allergies Active Allergy Reactions Severity Noted Date Comments Aspirin Unknown - See comments 07/30/2017 Sick to stomach Codeine Unknown - See comments 07/30/2017 Sick to stomach. documented as of this encounter (statuses as of 02/17/2019) Medications Medication Sig Dispensed Refills Start Date End Date Status gabapentin 600 mg Take 1.5 tablets 135 tablet 3 05/06/2018 Active tabletIndications: Left by mouth 3 arm pain, Chronic left (three) times shoulder pain, Muscle daily. spasm, Other chronic pain desvenlafaxine Take 1 tablet by 90 tablet 1 01/09/2019 Active succinate 100 mg 24 hr mouth daily. tabletIndications: PTSD (post-traumatic stress disorder) TIZANIDINE 4 mg TAKE 1 TABLET BY 90 tablet 1 01/25/2019 Active tabletIndications: MOUTH EVERY 8 Chronic left shoulder (EIGHT) HOURS pain NEEDED FOR PAIN (SCALE 4-6). QUEtiapine (SEROQUEL) Take 25 mg by 0 Active 25 mg tablet mouth at bedtime. documented as of this encounter (statuses as of 02/17/2019) Active Problems Problem Noted Date Other chronic pain 08/28/2017 Osteopenia 08/12/2017 CRP elevated 08/07/2017 Hypovitaminosis D: 16(07/2017) 08/05/2017 Immunization counseling 07/30/2017 Long-term use of Plaquenil 07/30/2017 [facility] (current) use of systemic steroids 07/30/2017 roasterman current use of non-steroidal anti-inflammatories (NSAID) 07/30/2017 Subacromial bursitis of left shoulder joint 07/30/2017 H/O rheumatoid arthritis 07/30/2017 Polyarthralgia 07/30/2017 Chronic fatigue 07/30/2017 documented as of this encounter (statuses as of 02/17/2019) Resolved Problems Problem Noted Date Resolved Date Pain in joint, multiple sites 07/30/2017 07/30/2017 documented as of this encounter (statuses as of 02/17/2019) Immunizations Name Administration Dates Next Due Tdap [...] Treatment Date Type Specialty Care Team Description 02/19/2019 Office Visit Surgery Jenny Rodríguez MD [address] [facility] [address] [place] [address] [phone] 03/26/2019 Office Visit Internal Medicine Pamela Lemus MD [address] [place] [address] [address] [place] [address] Health Maintenance Due Date Last Done Comments [...] Phone Address Type / Group BCBS OF [facility] [id number] 2014-Bertha [phone] [address] PPO/POS [place] - OUT OF t 7 [id number] [place] [address] documented as of this encounter
--- OUTSIDE RECORDS SUMMARY | 2019-05-26 04:46 | XMS REPORT | Clinical Summary ---
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 02/11/2019 Hospital Encounter Radiology Allan, No Show Pamela Whitaker MD 02/03/2019 Office Visit Internal Medicine Allan, Weight loss (Primary Dx); Pamela Whitaker MD Fear of weight gain; Decreased appetite; Other constipation; Forgetfulness; Chronic pain of both shoulders; RLS (restless legs syndrome); Balance problem; Anxiety; Encounter for screening mammogram for breast cancer; Colon cancer screening; Dietary counseling 02/03/2019 Orders Only Doctor Unassigned, [place] 01/26/2019 Refill Internal Medicine [place], Refill Request [...] Office Visit Internal Medicine Pamela Lemus MD [address] [place] [address] Dr Juarez [address] [place] [address] [id number] Health Maintenance Due Date Last Done Comments [...] in Dysuria the results section. FLU VACC ([id number]), Routine 04/15/2019 3:10 Need for influenza 6+ [...] syndrome) procedure are in the results section. [facility] PATIENT FINANCIAL Routine 02/03/2019 7:43 POLICY AM CDT NO SHOW OR MISSED Routine 02/03/2019 7:43 APPOINTMENT POLICY AM CDT ACKNOWLEDGEMENT from Last 3 Months Results URINE CULTURE (04/15/2019 3:25 PM CDT) URINE CULTURE 10,000 - 100,000 [facility]OR[facility] CFU/mL mixed aerobic SERVICES organisms - suggests endogenous microbial contamination Specimen Urine - URINE, CLEAN CATCH Performing Organization Address City/State/Zipcode Phone Number [facility] CLIA: [id number], [address] [place], [place] [id number] [facility] POCT URINALYSIS W SPECIFIC GRAVITY (04/15/2019 [...] WHOLE BLOOD (03/04/2019 8:48 AM CDT) Pathologist [facility] Vitamin B1, Whole 94 70 - 180 [facility] Blood Comment: nmol/L INTERPRETIVE INFORMATION: Vitamin B1, Whole Blood This assay measures the concentration of thiamine diphosphate (TDP), the primary active form of vitamin B1. Approximately 90 percent of vitamin B1 present in whole blood is TDP. Thiamine and thiamine monophosphate, which comprise the remaining 10 percent, are not measured. Test developed and characteristics determined by [facility]. See Compliance Statement B: [employer]/CS Performed by [facility], [address] [place], [place] [id number] www.[email or web address], Cj Monteiro MD, Lab. Director Specimen Blood Performing Organization Address [facility]/Zipcode Phone Number [facility] [address] [place] [address] VITAMIN D, 25-OH (03/04/2019 8:48 AM CDT) VIT D 25OH 44 25 - 80 ng/mL [facility] 25-Hydroxy D3 44.2 ng/mL [facility] 25-Hydroxy D2 <2.5 ng/mL [facility] Specimen Blood Narrative Performed At Test developed and characteristics determined by [facility] Laboratory Services. Performing Organization Address City/State/Zipcode Phone Number [facility] CLIA: [id number], [address] [place], [place] [phone] HOMOCYSTEINE (03/04/2019 8:48 AM CDT) Homocysteine 10.4 4.7 - 12.6 umol/L [facility] Specimen Blood Performing Organization Address City/State/[facility] Phone Number [facility] CLIA: [id number], [address] [place] [address] [facility] TOTAL IRON BINDING CAPACITY (03/04/2019 8:48 AM CDT) TIBC 279 250 - 410 ug/dL [facility] % FE SAT 16 (L) 20 - 50 % [facility] Specimen Blood Performing Organization Address City/[facility] Centerbcowv Phone Number [facility] CLIA: [id number], [address] [place] [address] FOLATE (03/04/2019 8:48 AM CDT) FOLATE SER 8.2 3.0 - 20.0 ng/mL [facility] Specimen Blood Performing Organization Address [facility] Phone Number [facility] CLIA: [id number], [address] [place] [address] [facility] VITAMIN B12, LEVEL (03/04/2019 8:48 AM CDT) VIT B12 259 240 - 930 pg/mL [facility] Specimen Blood Narrative Performed At Biotin has been reported to cause a positive bias, interpret [facility] results relative to patient's use of biotin. Performing Organization Address City/[facility] Phone Number [facility] CLIA: [id number], [address] [place] [address] [facility] IRON (03/04/2019 8:48 AM CDT) IRON 46 (L) 50 - 160 ug/dL [facility] Specimen Blood Performing Organization Address [facility] Phone Number [facility] CLIA: [id number], [address] [place] [address] FERRITIN SERUM (03/04/2019 8:48 AM CDT) FERRITIN 73.9 11.0 - 264.0 ng/mL [facility] Specimen Blood Narrative Performed At Bi[employer] has been reported to cause a negative [facility] bias, interpret results relative to patient's use of biotin. Performing Organization Address City/[facility] Centerbcode Phone Number [facility] CLIA: [id number], [address] [place] [address] [facility] VITAMIN B6, PLASMA (03/04/2019 8:48 AM CDT) VIT B6 20.9 20.0 - 125.0 [place] Comment: nmol/L INTERPRETIVE INFORMATION: Vitamin B6 (Pyridoxal 5-Phosphate) Pyridoxal 5'-phosphate measured in a specimen collected following an 8-hour or overnight fast accurately indicates vitamin B6 nutritional status. Non-fasting specimen concentration reflects recent vitamin intake. Test developed and characteristics determined by [facility]. See Compliance Statement B: [employer]/CS Performed by [facility], [address] [place] [id number] www.[email or web address], Cj Monteiro MD, Lab. Director Specimen Blood Performing Organization Address [facility] Phone Number [facility] [address] [place] [address] ZINC, SERUM (03/04/2019 8:48 AM CDT) ZINC 62.5 60.0 - 120.0 [facility] Comment: ug/dL INTERPRETIVE INFORMATION: Zinc, Serum or [...] absorption. Test developed and characteristics determined by [facility]. See Compliance Statement B: [employer]/CS Performed by [facility], [address] [place] [address] www.[email or web address], Cj Monteiro MD, Lab. Director Specimen Blood Performing Organization Address [facility]bc[facility] Phone Number [facility] [address] [place] [address] [facility] PATIENT FINANCIAL POLICY (02/03/2019 7:43 AM CDT) Specimen Performing Organization Address [facility]/State/Zipcode Phone Number HIM NO SHOW OR MISSED APPOINTMENT POLICY ACKNOWLEDGEMENT (02/03/2019 7:43 AM CDT) Specimen Performing Organization Address City/State/Zipcode Phone Number HIM from Last 3 Months Insurance Payer Benefit Plan Subscriber ID Effective Dates Phone Address Type / Group BCBS [facility] [id number] 2014-Bretha [phone] [address] PPO/POS [place] - OUT OF t 7 [id number] [place] [address] (Home) [place] [address]
--- OUTSIDE RECORDS SUMMARY | 2019-05-26 04:46 | XMS REPORT | Clinical Summary ---
:1965 Author Organization [facility] Address [address] [place] [address] Care Team Providers Name Role Phone Ansley Calle MD Unavailable Pamela Lemus MD Primary Care Provider Allergies Active Allergy Reactions Severity Noted Date Comments Aspirin Unknown - See comments 07/30/2017 Sick to stomach Codeine Unknown - See comments 07/30/2017 Sick to stomach. Medications Medication Sig Dispensed Refills Start Date End Date Status fluticasone propionate Use 1 [place] in 16 g 2 03/04/2019 Active 50 mcg/actuation nasal each nostril 2 sprayIndications: (two) times Upper respiratory daily. tract infection, unspecified type GABAPENTIN 600 mg TAKE 1.5 135 tablet 1 04/13/2019 Active tabletIndications: TABLETS BY Left arm pain, Chronic MOUTH 3 left shoulder pain, (THREE) TIMES Muscle spasm, Other DAILY. chronic pain tiZANidine 4 mg Take 1 tablet 90 tablet 4 04/28/2019 Active tabletIndications: by mouth every Chronic left shoulder 8 (eight) pain hours as needed for Pain (scale 4-6) (muscle spasms in upper arms). azithromycin 1 % Place 1 Drop 2.5 [...] Facility (current) use of systemic steroids 07/30/2017 [facility] current use of non-steroidal anti-inflammatories (NSAID) 07/30/2017 Subacromial bursitis of left shoulder joint 07/30/2017 H/O rheumatoid arthritis 07/30/2017 Polyarthralgia 07/30/2017 Chronic fatigue 07/30/2017 Resolved Problems Problem Noted Date Resolved Date Pain in joint, multiple sites 07/30/2017 07/30/2017 Encounters Date Type Specialty Care Team Description 04/30/2019 Telephone Internal Medicine [place], Rx Concern/Question Pamela Whitaker MD 04/28/2019 Office Visit Internal Medicine [place], Iron deficiency ( Primary Dx); Pamela Whitaker MD Chronic left shoulder pain; Muscle spasm; Memory problem; Anxiety; Diarrhea, unspecified type 04/17/2019 Telephone Family Medicine [place], Authorization Pamela Whitaker MD (requesting PA) 04/15/2019 Office Visit Family Medicine Anshul Howard, Urinary tract infection without hematuria, site unspecified (Primary Dx); Acute bacterial conjunctivitis of left eye; Need for influenza vaccination; Dysuria 04/12/2019 Refill Internal Medicine [place] Refill Request Pamela Whitaker MD 04/08/2019 Refill Internal Medicine [place] Refill Request Pamela Whitaker MD 03/13/2019 Refill Family Medicine [place] Refill Request Pamela Whitaker MD 03/04/2019 Office Visit Family Medicine Lai, Juevnal C Upper respiratory tract infection, unspecified type (Primary Dx); MD KAYLIN Immunization counseling 02/17/2019 Telephone Surgery Summer Guallpa, [place]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 Hospital Encounter Radiology [place], Pat Whitaker MD from Last 3 Months Immunizations Name Administration Dates Next Due Influenza Virus Vaccine 04/09/2018 Influenza Virus Vaccine Quad .5 mL IM 6+ MO 04/15/2019 Tdap 09/13/2017 Family History Medical History Relation Name Comments OR (myocardial infarction) Father Arthritis Maternal Grandmother RA [...] Sign Reading Time Taken Comments Blood Pressure 105/68 04/28/2019 7:10 AM DIRECTORY CLERK Pulse 62 04/28/2019 7:10 AM DIRECTORY CLERK Temperature 36.2 C (97.1 F) 04/28/2019 7:10 AM DIRECTORY CLERK Respiratory Rate 18 04/28/2019 7:10 AM DIRECTORY CLERK Oxygen Saturation 100% 04/28/2019 7:10 AM DIRECTORY CLERK Inhaled Oxygen Concentration - - Weight 63.4 kg (139 lb 11.2 oz) 04/28/2019 7:10 AM DIRECTORY CLERK Height 152.4 cm (5') 04/15/2019 3:07 PM CDT Body Mass Index 27.28 04/15/2019 3:07 PM CDT Plan of Treatment Date Type Specialty Care Team Description 06/29/2019 Office Visit Internal Medicine Pamela Lemus MD [address] [place] [address] Dr Juarez [address] [place] [address] [phone] Health Maintenance Due Date Last Done Comments [...] topic Procedures Procedure Name Priority Date/Time Associated Diagnosis Comments URINE CULTURE Routine 04/15/2019 3:25 Dysuria Results for this PM CDT procedure are in the results section. POCT URINALYSIS Routine 04/15/2019 3:22 Need for influenza Results for this PM CDT vaccination procedure are in Dysuria the results section. FLU VACC ([id number]), Routine 04/15/2019 3:10 Need for influenza 6+ [...] the results Balance problem section. VITAMIN B1 Routine 03/04/2019 8:48 Forgetfulness Results for this (THIAMINE), WHOLE AM CDT RLS (restless legs procedure are in BLOOD syndrome) the results Balance problem section. IRON [...] syndrome) procedure are in the results section. from Last 3 Months Results URINE CULTURE (04/15/2019 3:25 PM CDT) Pathologist [facility] URINE CULTURE 10,000 - 100,000 [facility] CFU/mL mixed aerobic SERVICES organisms - suggests endogenous microbial contamination Specimen Urine - URINE, CLEAN CATCH Performing Organization Address City/State/Zipcode Phone Number [facility] CLIA: [id number], [address] [place] [address] [phone] [facility] POCT URINALYSIS W SPECIFIC GRAVITY (04/15/2019 3:22 [...] WHOLE BLOOD (03/04/2019 8:48 AM CDT) Pathologist [facility] Vitamin B1, Whole 94 70 - 180 [facility] Blood Comment: nmol/L INTERPRETIVE INFORMATION: Vitamin B1, Whole Blood This assay measures the concentration of thiamine diphosphate (TDP), the primary active form of vitamin B1. Approximately 90 percent of vitamin B1 present in whole blood is TDP. Thiamine and thiamine monophosphate, which comprise the remaining 10 percent, are not measured. Test developed and characteristics determined by [facility] [employer]. See Compliance Statement B: [facility]/CS Performed by [facility], [address] [place] [address] www.[facility], Cj Monteiro MD, Lab. Director Specimen Blood Performing Organization Address City/State/Zipcode Phone Number [facility] [address] [place] [address] VITAMIN D, 25-OH (03/04/2019 8:48 AM CDT) VIT D 25OH 44 25 - 80 ng/mL [facility] 25-Hydroxy D3 44.2 ng/mL [facility] 25-Hydroxy D2 <2.5 ng/mL [facility] Specimen Blood Narrative Performed At Test developed and characteristics determined by [facility] Laboratory Services. Performing Organization Address City/State/Zipcode Phone Number [facility] CLIA: [id number], [address] [place] [address] [phone] [facility] HOMOCYSTEINE (03/04/2019 8:48 AM CDT) Homocysteine 10.4 4.7 - 12.6 umol/L [facility] Specimen Blood Performing Organization Address [facility]out Phone Number [facility] CLIA: [id number], [address] [place] [address] [facility] TOTAL IRON BINDING CAPACITY (03/04/2019 8:48 AM CDT) TIBC 279 250 - 410 ug/dL [facility] % FE SAT 16 (L) 20 - 50 % [facility] Specimen Blood Performing Organization Address City/[facility] Cent[facility]out Phone Number [facility] CLIA: [id number], [address] [place] [address] FOLATE (03/04/2019 8:48 AM CDT) FOLATE SER 8.2 3.0 - 20.0 ng/mL [facility] Specimen Blood Performing Organization Address [facility] Centercode Phone Number [facility] CLIA: [id number], [address] [place] [address] [facility] VITAMIN B12, LEVEL (03/04/2019 8:48 AM CDT) VIT B12 259 240 - 930 pg/mL [facility] Specimen Blood Narrative Performed At Bi[employer] has been reported to cause a positive bias, interpret [facility] results relative to patient's use of biotin. Performing Organization Address City/State/Zipcode Phone Number [facility] CLIA: [id number], [address] [place] [address] [facility] IRON (03/04/2019 8:48 AM CDT) IRON 46 (L) 50 - 160 ug/dL [facility] Specimen Blood Performing Organization Address City/[facility]/Zipcode Phone Number [facility] CLIA: [id number], [address] [place] [address] FERRITIN SERUM (03/04/2019 8:48 AM CDT) FERRITIN 73.9 11.0 - 264.0 ng/mL [facility] Specimen Blood Narrative Performed At [employer] has been reported to cause a negative [facility] bias, interpret results relative to patient's use of biotin. Performing Organization Address [facility] Centercout Phone Number [facility] CLIA: [id number], [address] [place] [address] VITAMIN B6, PLASMA (03/04/2019 8:48 AM CDT) VIT B6 20.9 20.0 - 125.0 [facility] Comment: nmol/L INTERPRETIVE INFORMATION: Vitamin B6 (Pyridoxal 5-Phosphate) Pyridoxal 5'-phosphate measured in a specimen collected following an 8-hour or overnight fast accurately indicates vitamin B6 nutritional status. Non-fasting specimen concentration reflects recent vitamin intake. Test developed and characteristics determined by [facility]. See Compliance Statement B: [employer]/CS Performed by [facility], [address] [place] [address] www.[facility], Cj Monteiro MD, Lab. Director Specimen Blood Performing Organization Address [facility] Medical Centercode Phone Number [facility] [address] [place] [address] ZINC, SERUM (03/04/2019 8:48 AM CDT) ZINC 62.5 60.0 - 120.0 [place] Comment: ug/dL INTERPRETIVE INFORMATION: Zinc, Serum or [...] absorption. Test developed and characteristics determined by [facility]. See Compliance Statement B: [employer]/CS Performed by [facility], [address] [place] [address] www.[facility], Cj Monteiro MD, Lab. Director Specimen Blood Performing Organization Address City/State/Zipcode Phone Number [facility] [address] [place] [address] from Last 3 Months Insurance Payer Benefit Plan Subscriber ID Effective Dates Phone Address Type / Group BCBS [facility] [id number] 2014-Bertha [phone] [address] PPO/POS [place] - OUT OF t 7 [id number] [place] [address] (Home) [place] [address]
--- OUTSIDE RECORDS SUMMARY | 2019-05-26 04:46 | XMS REPORT | Clinical Summary ---
:1965 Author Organization [facility] Address [address] [place] [address] Care Team Providers Name Role Phone Ansley Calle MD Unavailable Pamela Lemus MD Primary Care Provider Allergies Active Allergy Reactions Severity Noted Date Comments Aspirin Unknown - See comments 07/30/2017 Sick to stomach Codeine Unknown - See comments 07/30/2017 Sick to stomach. Medications Medication Sig Dispensed Refills Start Date End Date Status fluticasone propionate Use 1 [place] in 16 g 2 03/04/2019 Active 50 [...] counseling 07/30/2017 Long-term use of Plaquenil 07/30/2017 custodial (current) use of systemic steroids 07/30/2017 custodial current use of non-steroidal anti-inflammatories (NSAID) 07/30/2017 [...] MD 03/04/2019 Office Visit Family Medicine Lai, Juvenal C Upper respiratory tract infection, unspecified type (Primary Dx); MD KAYLIN Immunization counseling 02/17/2019 Telephone Surgery Summer Guallpa, Kenney MANAGER STRATE[employer]IC MARKETING 02/11/2019 Hospital Encounter Radiology Allan, Pat Whitaker MD from Last 3 Months Immunizations Name Administration Dates Next Due Influenza Virus Vaccine 04/09/2018 Influenza Virus Vaccine Quad .5 mL IM 6+ MO 04/15/2019 Tdap 09/13/2017 Family History Medical History Relation Name Comments [place] (myocardial infarction) Father Arthritis Maternal Grandmother RA [...] Comments Blood Pressure 105/68 04/28/2019 7:10 AM REGISTERED CLIENT ASSOCIATE Pulse 62 04/28/2019 7:10 AM REGISTERED CLIENT ASSOCIATE Temperature 36.2 C (97.1 F) 04/28/2019 7:10 AM REGISTERED CLIENT ASSOCIATE Respiratory Rate 18 04/28/2019 7:10 AM REGISTERED CLIENT ASSOCIATE Oxygen Saturation 100% 04/28/2019 7:10 AM REGISTERED CLIENT ASSOCIATE Inhaled Oxygen Concentration - - Weight 63.4 kg (139 lb 11.2 oz) 04/28/2019 7:10 AM REGISTERED CLIENT ASSOCIATE Height 152.4 cm (5') 04/15/2019 3:07 PM CDT Body Mass Index 27.28 04/15/2019 3:07 PM CDT Plan of Treatment Date Type Specialty Care Team Description 06/29/2019 Office Visit Internal Medicine Pamela Lemus MD [address] [place] [address] Dr Juarez [address] [place] [address] [phone] Health Maintenance Due Date Last Done Comments [...] in Dysuria the results section. FLU VACC ([id number]), Routine 04/15/2019 3:10 Need for influenza 6+ [...] URINE CULTURE (04/15/2019 3:25 PM CDT) Pathologist [facility], [place] URINE CULTURE 10,000 - 100,000 [facility] CFU/mL mixed aerobic SERVICES organisms - suggests endogenous microbial contamination Specimen Urine - URINE, CLEAN CATCH Performing Organization Address City/State/Zipcode Phone Number [facility] CLIA: [id number], [address] [place] [address] [facility] POCT URINALYSIS W SPECIFIC GRAVITY (04/15/2019 3:22 [...] WHOLE BLOOD (03/04/2019 8:48 AM CDT) Pathologist [facility] [place] Vitamin B1, Whole 94 70 - [address] [facility] Blood Comment: nmol/L INTERPRETIVE INFORMATION: Vitamin B1, Whole Blood This assay measures the concentration of thiamine diphosphate (TDP), the primary active form of vitamin B1. Approximately 90 percent of vitamin B1 present in whole blood is TDP. Thiamine and thiamine monophosphate, which comprise the remaining 10 percent, are not measured. Test developed and characteristics determined by [employer]. See Compliance Statement B: [employer] Performed by [employer], [address] [place] [address] www.[employer], Cj Monteiro MD, Lab. Director Specimen Blood Performing Organization Address City/State/Zipcode Phone Number [facility] [address] [place] [address] VITAMIN D, 25-OH (03/04/2019 8:48 AM CDT) VIT D 25OH 44 25 - 80 ng/mL [facility] SERVICES 25-Hydroxy D3 44.2 ng/mL [facility] 25-Hydroxy D2 <2.5 ng/mL [facility] Specimen Blood Narrative Performed At Test developed and characteristics determined by [facility]ORAT[facility] SERVICES Laboratory Services. Performing Organization Address City/State/Zipcode Phone Number [facility] CLIA: [id number], [address] [place] [address] [facility] HOMOCYSTEINE (03/04/2019 8:48 AM CDT) Homocysteine 10.4 4.7 - 12.6 umol/L [facility] Specimen Blood Performing Organization Address [facility] Phone Number [facility] CLIA: [id number], [address] [place] [address] [phone] [facility] TOTAL IRON BINDING CAPACITY (03/04/2019 8:48 AM CDT) TIBC 279 250 - 410 ug/dL [facility] % FE SAT 16 (L) 20 - 50 % [facility] Specimen Blood Performing Organization Address City/[facility] Phone Number [facility] CLIA: [id number], [address] [place] [address] FOLATE (03/04/2019 8:48 AM CDT) FOLATE SER 8.2 3.0 - 20.0 ng/mL [facility] Specimen Blood Performing Organization Address [facility] Phone Number [facility] CLIA: [id number], [address] [place] [address] [facility] VITAMIN B12, LEVEL (03/04/2019 8:48 AM CDT) VIT B12 259 240 - 930 pg/mL [facility] SERVICES Specimen Blood Narrative Performed At Biotin has been reported to cause a positive bias, interpret [facility] results relative to patient's use of biotin. Performing Organization Address City/State/Zipcode Phone Number [facility] CLIA: [id number], [address] [place] [address] [facility] IRON (03/04/2019 8:48 AM CDT) IRON 46 (L) 50 - 160 ug/dL [facility] Specimen Blood Performing Organization Address City/[facility]/Zipcode Phone Number [facility] CLIA: [id number], [address] [place] [address] FERRITIN SERUM (03/04/2019 8:48 AM CDT) FERRITIN 73.9 11.0 - 264.0 ng/mL [facility] Specimen Blood Narrative Performed At Biotin has been reported to cause a negative [facility] bias, interpret results relative to patient's use of biotin. Performing Organization Address [facility] Phone Number [facility] CLIA: [id number], [address] [place] [address] VITAMIN B6, PLASMA (03/04/2019 8:48 AM CDT) VIT B6 20.9 20.0 - 125.0 [facility] Comment: nmol/L INTERPRETIVE INFORMATION: Vitamin B6 (Pyridoxal 5-Phosphate) Pyridoxal 5'-phosphate measured in a specimen collected following an 8-hour or overnight fast accurately indicates vitamin B6 nutritional status. Non-fasting specimen concentration reflects recent vitamin intake. Test developed and characteristics determined by [employer]. See Compliance Statement B: [employer], an [employer]/CS Performed by [employer], [address] [place] [address] www.[employer], Cj Monteiro MD, Lab. Director Specimen Blood Performing Organization Address [facility] Cent[facility]ode Phone Number [facility] [address] [place] [address] ZINC, SERUM (03/04/2019 8:48 AM CDT) ZINC [...] absorption. Test developed and characteristics determined by [employer]. See Compliance Statement B: [employer] Performed by [employer], [address] [place] [address] www.[employer], Cj Monteiro MD, Lab. Director Specimen Blood Performing Organization Address City/State/Zipcode Phone Number [facility] [address] [place] [address] from Last 3 Months Insurance Payer Benefit Plan Subscriber ID Effective Dates Phone Address Type / Group BCBS [facility] [id number] 2014-Bertha [phone] [address] PPO/POS [place] - OUT OF t 7 [id number] [place] [address] (Home) [place] [address]
--- OUTSIDE RECORDS SUMMARY | 2019-05-26 04:47 | XMS REPORT | Clinical Summary ---
:[address] [facility] Address [address] [place] [address] Care Team Providers Name Role Phone Ansley Calle MD Unavailable Pamela Lemus MD Primary Care Provider Allergies Active Allergy Reactions Severity Noted Date Comments Aspirin Unknown - See comments 07/30/2017 Sick to stomach Codeine Unknown - See comments 07/30/2017 Sick to stomach. Medications Medication Sig Dispensed Refills Start Date End Date Status fluticasone propionate Use 1 [place] in 16 g 2 03/04/2019 Active 50 [...] counseling 07/30/2017 Long-term use of Plaquenil 07/30/2017 longterm (current) use of systemic steroids 07/30/2017 longterm current use of non-steroidal anti-inflammatories (NSAID) 07/30/2017 [...] counseling 02/17/2019 Telephone Surgery Summer Guallpa, Kenney HUMAN FACTORS SPECIALIST 02/11/2019 Hospital Encounter Radiology Allan, Pat Whitaker MD from Last 3 Months Immunizations Name Administration Dates Next Due Influenza Virus Vaccine 04/09/2018 Influenza Virus Vaccine Quad .5 mL IM 6+ MO 04/15/2019 Tdap 09/13/2017 Family History Medical History Relation Name Comments [place] (myocardial infarction) Father Arthritis Maternal Grandmother RA [...] Comments Blood Pressure 105/68 04/28/2019 7:10 AM CLEANER TOUCH UP WORKER Pulse 62 04/28/2019 7:10 AM CLEANER TOUCH UP WORKER Temperature 36.2 C (97.1 F) 04/28/2019 7:10 AM CLEANER TOUCH UP WORKER Respiratory Rate 18 04/28/2019 7:10 AM CLEANER TOUCH UP WORKER Oxygen Saturation 100% 04/28/2019 7:10 AM CLEANER TOUCH UP WORKER Inhaled Oxygen Concentration - - Weight 63.4 kg (139 lb 11.2 oz) 04/28/2019 7:10 AM CLEANER TOUCH UP WORKER Height 152.4 cm (5') 04/15/2019 3:07 PM CDT Body Mass Index 27.28 04/15/2019 3:07 PM CDT Plan of Treatment Date Type Specialty Care Team Description 06/29/2019 Office Visit Internal Medicine Pamela Lemus MD [address] [place] [address] Dr Juarez [address] [place] [address] [phone] Health Maintenance Due Date Last Done Comments [...] in Dysuria the results section. FLU VACC ([id number]), Routine 04/15/2019 3:10 Need for influenza 6+ [...] CULTURE (04/15/2019 3:25 PM CDT) Pathologist [facility] URINE CULTURE 10,000 - 100,000 [facility] CFU/mL mixed aerobic SERVICES organisms - suggests endogenous microbial contamination Specimen Urine - URINE, CLEAN CATCH Performing Organization Address City/State/Zipcode Phone Number [facility] CLIA: [id number], [address] [place] [address] [facility] POCT URINALYSIS W SPECIFIC GRAVITY [...] BLOOD (03/04/2019 8:48 AM CDT) Pathologist [facility] Vitamin B1, Whole 94 70 - 180 [facility] Blood Comment: nmol/L INTERPRETIVE INFORMATION: Vitamin B1, Whole Blood This assay measures the concentration of thiamine diphosphate (TDP), the primary active form of vitamin B1. Approximately 90 percent of vitamin B1 present in whole blood is TDP. Thiamine and thiamine monophosphate, which comprise the remaining 10 percent, are not measured. Test developed and characteristics determined by [employer]. See Compliance Statement B: [employer] Performed by [employer], [address] [place] [address] www.[employer], Cj Monteiro MD, Lab. Director Specimen Blood Performing Organization Address City/State/Zipcode Phone Number [facility] [address] [place] [address] VITAMIN D, 25-OH (03/04/2019 8:48 AM CDT) VIT D 25OH 44 25 - 80 ng/mL [facility] SERVICES 25-Hydroxy D3 44.2 ng/mL [facility] 25-Hydroxy D2 <2.5 ng/mL [facility] Specimen Blood Narrative Performed At Test developed and characteristics determined by [facility] Laboratory Services. Performing Organization Address City/State/Zipcode Phone Number [facility] CLIA: [id number], [address] [place] [address] [facility] HOMOCYSTEINE (03/04/2019 8:48 AM CDT) Homocysteine 10.4 4.7 - 12.6 umol/L [facility] Specimen Blood Performing Organization Address [facility] Phone Number [facility] CLIA: [id number], [address] [place] [address] [facility] TOTAL IRON BINDING CAPACITY (03/04/2019 8:48 AM CDT) TIBC 279 250 - 410 ug/dL [facility] % FE SAT 16 (L) 20 - 50 % [facility] Specimen Blood Performing Organization Address City/[facility] Phone Number [facility] CLIA: [id number], [address] [place] [address] FOLATE (03/04/2019 8:48 AM CDT) FOLATE SER 8.2 3.0 - 20.0 ng/mL [facility] SERVICES Specimen Blood Performing Organization Address [facility] Phone Number [facility] CLIA: [id number], [address] [place] [address] [facility] VITAMIN B12, LEVEL (03/04/2019 8:48 AM CDT) VIT B12 259 240 - 930 pg/mL [facility] SERVICES Specimen Blood Narrative Performed At Biotin has been reported to cause a positive bias, interpret [facility] results relative to patient's use of biotin. Performing Organization Address City/State/Zipcode Phone Number [facility] CLIA: [id number], [address] [place] [address] [facility] IRON (03/04/2019 8:48 AM CDT) IRON 46 (L) 50 - 160 ug/dL [facility] Specimen Blood Performing Organization Address City/[facility]/Zipcode Phone Number [facility] CLIA: [id number], [address] [place] [address] FERRITIN SERUM (03/04/2019 8:48 AM CDT) FERRITIN 73.9 11.0 - 264.0 ng/mL [facility] Specimen Blood Narrative Performed At Bi[employer] has been reported to cause a negative [facility] bias, interpret results relative to patient's use of biotin. Performing Organization Address [facility] Phone Number [facility] CLIA: [id number], [address] [place] [address] VITAMIN B6, PLASMA (03/04/2019 8:48 AM CDT) VIT B6 20.9 20.0 - 125.0 [facility] Comment: nmol/L INTERPRETIVE INFORMATION: Vitamin B6 (Pyridoxal 5-Phosphate) Pyridoxal 5'-phosphate measured in a specimen collected following an 8-hour or overnight fast accurately indicates vitamin B6 nutritional status. Non-fasting specimen concentration reflects recent vitamin intake. Test developed and characteristics determined by [employer]. See Compliance Statement B: [email or web address] Performed by [employer], [address] [place] [address] [employer], Cj Monteiro MD, Lab. Director Specimen Blood Performing Organization Address [facility] Phone Number [facility] [address] [place] [address] ZINC, SERUM (03/04/2019 8:48 AM CDT) ZINC [...] absorption. Test developed and characteristics determined by [employer]. See Compliance Statement B: [employer] Performed by [employer], [address] [place] [address] [employer], Cj Monteiro MD, Lab. Director Specimen Blood Performing Organization Address City/State/Zipcode Phone Number [facility] [address] [place] [address] from Last 3 Months Insurance Payer Benefit Plan Subscriber ID Effective Dates Phone Address Type / Group BCBS [facility] [id number] 2014-Bertha [phone] [address] PPO/POS [place] - OUT OF t 7 [id number] [place] [address] (Home) [place] [address]
--- OUTSIDE RECORDS SUMMARY | 2019-05-26 04:47 | XMS REPORT | Clinical Summary ---
:1965 Author Organization [facility] Address [address] [place] [id number] Care Team Providers Name Role Phone Ansley Calle MD Unavailable Pamela Lemus MD Primary Care Provider Allergies Active Allergy Reactions Severity Noted Date Comments Aspirin Unknown - See comments 07/30/2017 Sick to stomach Codeine Unknown - See comments 07/30/2017 Sick to stomach. Medications Medication Sig Dispensed Refills Start Date End Date Status fluticasone propionate Use 1 [place] in 16 g 2 03/04/2019 Active 50 [...] counseling 07/30/2017 Long-term use of Plaquenil 07/30/2017 half-way (current) use of systemic steroids 07/30/2017 half-way current use of non-steroidal anti-inflammatories (NSAID) 07/30/2017 [...] counseling 02/17/2019 Telephone Surgery Summer Guallpa, Kenney PROPERTY SITE MANAGER 02/11/2019 Hospital Encounter Radiology Allan, Pat Whitaker MD from Last 3 Months Immunizations Name Administration Dates Next Due Influenza Virus Vaccine 04/09/2018 Influenza Virus Vaccine Quad .5 mL IM 6+ MO 04/15/2019 Tdap 09/13/2017 Family History Medical History Relation Name Comments [place] (myocardial infarction) Father Arthritis Maternal Grandmother RA [...] Comments Blood Pressure 105/68 04/28/2019 7:10 AM [employer] Pulse 62 04/28/2019 7:10 AM [employer] Temperature 36.2 C (97.1 F) 04/28/2019 7:10 AM [employer] Respiratory Rate 18 04/28/2019 7:10 AM [employer] Oxygen Saturation 100% 04/28/2019 7:10 AM [employer] Inhaled Oxygen Concentration - - Weight 63.4 kg (139 lb 11.2 oz) 04/28/2019 7:10 AM [employer] Height 152.4 cm (5') 04/15/2019 3:07 PM CDT Body Mass Index 27.28 04/15/2019 3:07 PM CDT Plan of Treatment Date Type Specialty Care Team Description 06/29/2019 Office Visit Internal Medicine Pamela Lemus MD [address] [place] [address] Dr Juarez [address] [place] [id number] [phone] Health Maintenance Due Date Last Done Comments [...] in Dysuria the results section. FLU VACC ([id number]), Routine 04/15/2019 3:10 Need for influenza 6+ [...] [facility] [place] URINE CULTURE 10,000 - 100,000 [facility] CFU/mL mixed aerobic SERVICES organisms - suggests endogenous microbial contamination Specimen Urine - URINE, CLEAN CATCH Performing Organization Address City/State/Zipcode Phone Number [facility] CLIA: [id number], [address] [place] [address] [phone] [facility] POCT URINALYSIS W SPECIFIC GRAVITY (04/15/2019 3:22 [...] Vitamin B1, Whole 94 70 - 180 [facility] Blood Comment: nmol/L INTERPRETIVE INFORMATION: Vitamin B1, Whole Blood This assay measures the concentration of thiamine diphosphate (TDP), the primary active form of vitamin B1. Approximately 90 percent of vitamin B1 present in whole blood is TDP. Thiamine and thiamine monophosphate, which comprise the remaining 10 percent, are not measured. Test developed and characteristics determined by [facility]. See Compliance Statement B: [employer]/CS Performed by [facility], [address] [place] [address] [email or web address], Cj Monteiro MD, Lab. Director Specimen Blood Performing Organization Address City/State/Zipcode Phone Number [facility] [address] [place] [address] VITAMIN D, 25-OH (03/04/2019 8:48 AM CDT) VIT D 25OH 44 25 - 80 ng/mL [facility] 25-Hydroxy D3 44.2 ng/mL [facility] 25-Hydroxy D2 <2.5 ng/mL [facility] Specimen Blood Narrative Performed At Test developed and characteristics determined by [facility] Laboratory Services. Performing Organization Address City/State/Zipcode Phone Number [facility] CLIA: [id number], [address] [place] [address] [facility] HOMOCYSTEINE (03/04/2019 8:48 AM CDT) Homocysteine 10.4 4.7 - 12.6 umol/L [facility] Specimen Blood Performing Organization Address [facility] Phone Number [facility] CLIA: [id number], [address] [place] [address] [facility] TOTAL IRON BINDING CAPACITY (03/04/2019 8:48 AM CDT) TIBC 279 250 - 410 ug/dL [facility] % FE SAT 16 (L) 20 - 50 % [facility] Specimen Blood Performing Organization Address City/[facility] Phone Number [facility] CLIA: [id number], [address] [place] [address] FOLATE (03/04/2019 8:48 AM CDT) FOLATE SER 8.2 3.0 - 20.0 ng/mL [facility] Specimen Blood Performing Organization Address [facility] Phone Number [facility] CLIA: [id number], [address] [place] [address] [facility] VITAMIN B12, LEVEL (03/04/2019 8:48 AM CDT) VIT B12 259 240 - 930 pg/mL [facility] Specimen Blood Narrative Performed At Biotin has been reported to cause a positive bias, interpret [facility] results relative to patient's use of biotin. Performing Organization Address City/State/Zipcode Phone Number [facility] CLIA: [id number], [address] [place] [address] [phone] [facility] IRON (03/04/2019 8:48 AM CDT) IRON 46 (L) 50 - 160 ug/dL [facility] Specimen Blood Performing Organization Address City/[facility]/Zipcode Phone Number [facility] CLIA: [id number], [address] [place] [address] FERRITIN SERUM (03/04/2019 8:48 AM CDT) FERRITIN 73.9 11.0 - 264.0 ng/mL [facility] Specimen Blood Narrative Performed At Biotin has been reported to cause a negative [facility] bias, interpret results relative to patient's use of biotin. Performing Organization Address [facility] Phone Number [facility] CLIA: [id number], [address] [place] [address] VITAMIN B6, PLASMA (03/04/2019 8:48 AM CDT) VIT B6 20.9 20.0 - 125.0 [facility] Comment: nmol/L INTERPRETIVE INFORMATION: Vitamin B6 (Pyridoxal 5-Phosphate) Pyridoxal 5'-phosphate measured in a specimen collected following an 8-hour or overnight fast accurately indicates vitamin B6 nutritional status. Non-fasting specimen concentration reflects recent vitamin intake. Test developed and characteristics determined by [facility]. See Compliance Statement B: [email or web address]/CS Performed by [facility], [address] [place] [address] [email or web address], Cj Monteiro MD, Lab. Director Specimen Blood Performing Organization Address [facility] Phone Number [facility] [address] [place] [address] ZINC, SERUM (03/04/2019 8:48 AM CDT) ZINC [...] absorption. Test developed and characteristics determined by [facility]. See Compliance Statement B: [email or web address]/CS Performed by [facility], [address] [place] [address] [email or web address], Cj Monteiro MD, Lab. Director Specimen Blood Performing Organization Address City/State/Zipcode Phone Number [facility] [address] [place] [address] from Last 3 Months Insurance Payer Benefit Plan Subscriber ID Effective Dates Phone Address Type / Group BCBS [facility] [id number] 2014-Bertha [phone] [address] PPO/POS [place] - OUT OF t [id number] [place] [address] (Home) [place] [address]
[2019-05-26] MEDS ORDERED: ONDANSETRON 4 MG/2 ML VIAL ONE (05:03)
[2019-05-26] MEDS ORDERED: NA CHLORIDE 0.9% 1,000 ML ONE (05:03)
[2019-05-26 05:42] LABS: Absolute Lymphocytes (CBC) 1.5 K/uL (0.7-4.9); Basophils % 0.5 % (0-1.3); Hematocrit 42.1 % (36.0-45.0); Lymphocytes % 9.8 % (15.3-44.8); MPV 7.8 fL (7.6-11.3); RBC Red Blood Cell Count 4.53 M/uL (3.86-4.86)
[2019-05-26 06:02] LABS: ALT/SGPT 17 U/L (12-78); AST/SGOT 11 U/L (15-37); Albumin 3.6 g/dL (3.4-5.0); Alkaline Phosphatase 103 U/L (45-117); BUN Blood Urea Nitrogen 11 mg/dL (7-18); Bicarbonate 24 mmol/L (21-32); Bilirubin Direct < 0.1 mg/dL (0-0.2); Bilirubin Total 0.3 mg/dL (0.2-1.0); Glucose Level 122 mg/dL (74-106); Lipase 152 U/L (73-393); Potassium 3.4 mmol/L (3.5-5.1); Protein, Total 7.9 g/dL (6.4-8.2); Sodium Level 141 mmol/L (136-145)
[2019-05-26] MEDS ORDERED: MAGNE/ALUM HYDROXD 30 ML UCUP ONE (06:56)
[2019-05-26] MEDS ORDERED: LIDOCAINE VISCOUS 2% SOLN 15 ML UDC ONE (06:56)
--- NOTE | 2019-05-26 08:02 | ER ---
Nurse's Notes [facility] Name: Corrine Rosario Age: 53 yrs Sex: Female : 1965 Arrival Date: 05/26/2019 Time: 04:44 Bed 5 Private MD: Diagnosis: Viral enteritis Presentation: 05/26 04:56 Presenting complaint: Patient states: Diarrhea, headache, fever that began yesterday , lp1 vomiting this AM; States being around granddaughter with the Flu. Transition of care: patient was not received from another setting of care. Onset of symptoms was May 26, 2019. Risk Assessment: Do you want to hurt yourself or someone else? Patient reports no desire to harm self or others. Initial Sepsis Screen: Does the patient meet any 2 criteria? No. Patient's initial sepsis screen is negative. Does the patient have a suspected source of infection? No. Patient's initial sepsis screen is negative. Care prior to arrival: None. 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 - Social history:: Smoking status: Patient/guardian denies using tobacco. - Ebola Screening: : No symptoms or risks identified at this time. Screenin:58 Abuse screen: Denies threats or abuse. Denies injuries from another. Nutritional lp1 screening: No deficits noted. Tuberculosis screening: No symptoms or risk factors identified. Fall Risk None identified. Assessment: 04:57 General: Appears in no apparent distress. Behavior is appropriate for age. Pain: lp1 Complains of pain in abdomen Pain currently is 5 out of 10 on a pain scale. Quality of pain is described as crampy. Neuro: Level of Consciousness is awake, alert, obeys commands, Oriented to person, place, time, situation. Cardiovascular: Patient's skin is warm and dry. Respiratory: Respiratory effort is even, unlabored. GI: Abdomen is non-distended, Bowel sounds present X 4 quads. Abdomen is tender to palpation in epigastric area Reports diarrhea, nausea, vomiting. : No signs and/or symptoms were reported regarding the genitourinary system. EENT: No signs and/or symptoms were reported regarding the EENT system. Derm: Skin is pink, warm \T\ dry. Musculoskeletal: No deficits noted. 06:15 Reassessment: Patient appears in no apparent distress at this time. patient resting, lp1 eyes closed, respirations unlabored. Vital Signs: 04:57 BP 131 / 82; Pulse 92; Resp 18; Temp 99.3(O); Pulse Ox 98% on R/A; Weight 62.6 kg; lp1 Height 5 ft. 3 in. (160.02 cm); Pain 5/10; 06:49 BP 125 / 65; Pulse 80; Resp 18; Pulse Ox 99% on R/A; ea 08:00 BP 114 / 71; Pulse 85; Resp 16; Pulse Ox 97% ; sv 04:57 Body Mass Index 24.45 (62.60 kg, 160.02 cm) lp1 ED Course: 04:44 Patient arrived in ED. cl3 04:48 Ceferino Hernandez MD is Attending Physician. tw4 04:56 Saskia Estes, RN is Primary Nurse. lp1 04:57 Triage completed. lp1 04:57 Arm band placed on. lp1 04:59 Patient has correct armband on for positive identification. Placed in gown. Pulse ox lp1 on. NIBP on. 05:11 Inserted saline lock: 20 gauge in right antecubital area, using aseptic technique. ea Blood collected. per [facility] tech. 06:31 No provider procedures requiring assistance completed. lp1 07:40 Flu Sent. sv 08:16 IV discontinued, intact, bleeding controlled, No redness/swelling at site. Pressure sv dressing applied. Administered Medications: 05:10 Drug: NS 0.9% 1000 ml Route: IV; Rate: 1 bolus; Site: right antecubital; ea 06:30 Follow up: IV Status: Completed infusion; IV Intake: 1000ml lp1 05:10 Drug: Zofran 4 mg Route: IVP; Site: right antecubital; ea 06:30 Follow up: Response: No adverse reaction lp1 07:04 CANCELLED (No ): GI Cocktail with - (Maalox Suspension 30 ml, lp1 Lidocaine Liquid 2 % 20 ml, Phenobarbital-Belladonna 10 ml) PO once 07:04 Drug: GI Cocktail without - (Maalox Suspension 30 ml, Lidocaine Liquid 2 % 15 lp1 ml) Route: PO; 08:00 Follow up: Response: No adverse reaction sv Intake: 06:30 IV: 1000ml; Total: 1000ml. lp1 Outcome: 08:01 Discharge ordered by . rn 08:15 Patient left the ED. ss 08:16 Discharged to home ambulatory, with family. sv 08:16 Condition: stable 08:16 Condition: improved 08:16 Discharge instructions given to patient, Instructed on discharge instructions, follow up and referral plans. medication usage, Demonstrated understanding of instructions, follow-up care, medications, Prescriptions given X 2. Signatures: Justina Covington RN RN Seth Trujillo MD MD rn Smirch, Shelby, RN RN ss Pena, Laura, RN RN lp1 Gavi Coleman RN RN ea Wadley, Terrence, MD MD tw4 Tan Cat cl3 Corrections: (The following items were deleted from the chart) 05:11 05:10 NS 0.9% 1000 ml IV at 1 bolus in left antecubital blayne cisneros
--- NOTE | 2019-05-26 08:03 | EDPHYS ---
Physician Documentation [facility] Name: Corrine Rosario Age: 53 yrs Sex: Female : 1965 Arrival Date: 05/26/2019 Time: 04:44 Bed 5 Private MD: ED Physician Ceferino Hernandez HPI: 05/26 05:31 This 53 yrs old Female presents to ER via Ambulatory with complaints of tw4 Vomiting, Abdominal Pain. 05:31 The patient presents to the emergency department with nausea, vomiting. tw4 05:32 Onset: The symptoms/episode began/occurred yesterday. The symptoms are aggravated by tw4 nothing. The symptoms are alleviated by nothing. Severity of symptoms: At their worst the symptoms were moderate in the emergency department the symptoms are unchanged. The patient has not experienced similar symptoms in the past. 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 - Social history:: Smoking status: Patient/guardian denies using tobacco. - Ebola Screening: : No symptoms or risks identified at this time. ROS: 05:32 Constitutional: Negative for fever, chills, and weight loss, Eyes: Negative for injury, tw4 pain, redness, and discharge, Cardiovascular: Negative for chest pain, palpitations, and edema, Respiratory: Negative for shortness of breath, cough, wheezing, and pleuritic chest pain, Back: Negative for injury and pain, MS/Extremity: Negative for injury and deformity, Skin: Negative for injury, rash, and discoloration, Neuro: Negative for headache, weakness, numbness, tingling, and seizure. 05:32 Abdomen/GI: Positive for abdominal pain, nausea and vomiting, nausea, vomiting, and diarrhea, nausea, vomiting, Negative for anorexia, dysphagia, hematemesis, black/tarry stool, rectal pain, rectal bleeding, bowel incontinence, flatulence. Exam: 05:32 Constitutional: This is a well developed, well nourished patient who is awake, alert, tw4 and in no acute distress. Head/Face: Normocephalic, atraumatic. Chest/axilla: Normal chest wall appearance and motion. Nontender with no deformity. No lesions are appreciated. Cardiovascular: Regular rate and rhythm with a normal S1 and S2. No gallops, murmurs, or rubs. Normal PMI, no JVD. No pulse deficits. Respiratory: Lungs have equal breath sounds bilaterally, clear to auscultation and percussion. No rales, rhonchi or wheezes noted. No increased work of breathing, no retractions or nasal flaring. Skin: Warm, dry with normal turgor. Normal color with no rashes, no lesions, and no evidence of cellulitis. MS/ Extremity: Pulses equal, no cyanosis. Neurovascular intact. Full, normal range of motion. Neuro: Awake and alert, GCS 15, oriented to person, place, time, and situation. Cranial nerves II-XII grossly intact. Motor strength 5/5 in all extremities. Sensory grossly intact. Cerebellar exam normal. Normal gait. 05:32 Abdomen/GI: Inspection: abdomen appears normal, Bowel sounds: normal, Palpation: mild abdominal tenderness, in the umbilical area. Vital Signs: 04:57 BP 131 / 82; Pulse 92; Resp 18; Temp 99.3(O); Pulse Ox 98% on R/A; Weight 62.6 kg; lp1 Height 5 ft. 3 in. (160.02 cm); Pain 5/10; 06:49 BP 125 / 65; Pulse 80; Resp 18; Pulse Ox 99% on R/A; ea 08:00 BP 114 / 71; Pulse 85; Resp 16; Pulse Ox 97% ; sv 04:57 Body Mass Index 24.45 (62.60 kg, 160.02 cm) lp1 MDM: 04:56 Patient medically screened. tw4 07:04 Data reviewed: vital signs, nurses notes. tw4 07:24 ED course: Signed out to me by Dr Hernandez, states discharge planning complete patient rn improved, diagnosis of viral gastroenteritis. Instructed to f/u flu test then dc home.. 08:01 ED course: Flu, neg, feels better, will dc home per Dr. Mello plan.. rn 05/26 04:49 Order name: Basic Metabolic Panel; Complete Time: 06:53 tw4 05/26 06:53 Interpretation: Normal except: K 3.4; GLUC 122; CL 110; GFR 75. tw4 05/26 04:49 Order name: CBC with Diff; Complete Time: 06:53 tw4 05/26 06:53 Interpretation: Normal except: WBC 15.0; MCV 93.0; ANGELINA% 81.8; LYM% 9.8; NEUT A 12.3. tw4 05/26 04:49 Order name: Creatinine for Radiology; Complete Time: 06:53 tw4 05/26 04:49 Order name: Hepatic Function; Complete Time: 06:53 tw4 05/26 06:53 Interpretation: Normal except: AST 11; GLOB 4.3; A/G 0.8. tw4 05/26 04:49 Order name: Lipase; Complete Time: 06:53 tw4 05/26 06:53 Interpretation: Within normal limits: LIP 152. tw4 05/26 06:52 Order name: Flu; Complete Time: 08:01 tw4 05/26 04:49 Order name: IV Saline Lock; Complete Time: 05:07 tw4 05/26 04:49 Order name: Labs collected and sent; Complete Time: 05:07 tw4 05/26 06:52 Order name: Flu ds4 Administered Medications: 05:10 Drug: NS 0.9% 1000 ml Route: IV; Rate: 1 bolus; Site: right antecubital; ea 06:30 Follow up: IV Status: Completed infusion; IV Intake: 1000ml lp1 05:10 Drug: Zofran 4 mg Route: IVP; Site: right antecubital; ea 06:30 Follow up: Response: No adverse reaction lp1 07:04 CANCELLED (No ): GI Cocktail with - (Maalox Suspension 30 ml, lp1 Lidocaine Liquid 2 % 20 ml, Phenobarbital-Belladonna 10 ml) PO once 07:04 Drug: GI Cocktail without - (Maalox Suspension 30 ml, Lidocaine Liquid 2 % 15 lp1 ml) Route: PO; 08:00 Follow up: Response: No adverse reaction sv Disposition: 05/26/19 08:01 Discharged to Home. Impression: Viral enteritis. - Condition is Stable. - Discharge Instructions: Viral Gastroenteritis, Adult, [id number]-Tiqf. - Prescriptions for Zofran 4 mg Oral Tablet - take 1 tablet by ORAL route every 12 hours As needed; 6 tablet. Lomotil 2.5- 0.025 mg Oral Tablet - take 2 tablet by ORAL route once daily As needed; 20 tablet. - Medication Reconciliation Form, Thank You Letter, Antibiotic Education, Prescription Opioid Use form. - Follow up: Private Physician; When: Upon discharge from the Emergency Department; Reason: Recheck today's complaints, Continuance of care. - Problem is new. - Symptoms have improved. Signatures: Dispatcher [employer] EDMS Seth Kaplan MD MD rn Smirch, Shelby, RN RN ss Saskia Estes RN RN lp1 Gavi Coleman RN Ceferino Abarca ea, MD MD tw4 Justina Covington RN sv Corrections: (The following items were deleted from the chart) 06:54 06:52 Influenza Screen (A \T\ B)+BA.LAB.BRZ ordered. [facility] EDMS 07:04 06:54 GI Cocktail with - (Maalox 30 ml, Lidocaine 20 ml, lp1 Phenobarbital-Belladonna 10 ml) PO once ordered. tw4 07:04 07:04 Rate is 81 beats/min. Rhythm is regular. QRS Wall[place] is Normal. [place] interval is tw4 normal. QRS interval is normal. QT interval is normal. No Q waves. T waves are Normal. No ST changes noted. Interpreted by me. Reviewed by me. tw4 08:02 08:01 05/26/2019 08:01 Discharged to Home. Impression: Viral enteris. Condition is rn Stable. Discharge Instructions: Viral Gastroenteritis, Adult, Lexf-[id number]-[id number]. Prescriptions for Zofran 4 mg Oral Tablet - take 1 tablet by ORAL route every 12 hours As needed; 6 tablet, Lomotil 2.5-0.025 mg Oral Tablet - take 2 tablet by ORAL route once daily As needed; 20 tablet. and Forms are Medication Reconciliation Form, Thank You Letter, Antibiotic Education, Prescription Opioid Use. Follow up: Private Physician; When: Upon discharge from the Emergency Department; Reason: Recheck today's complaints, Continuance of care. Problem is new. Symptoms have improved. rn 08:15 08:02 05/26/2019 08:01 Discharged to Home. Impression: Viral enteritis. Condition is ss Stable. Discharge Instructions: Viral Gastroenteritis, Adult, Pwum-wf-[id number]. Prescriptions for Zofran 4 mg Oral Tablet - take 1 tablet by ORAL route every 12 hours As needed; 6 tablet, Lomotil 2.5-0.025 mg Oral Tablet - take 2 tablet by ORAL route once daily As needed; 20 tablet. and Forms are Medication Reconciliation Form, Thank You Letter, Antibiotic Education, Prescription Opioid Use. Follow up: Private Physician; When: Upon discharge from the Emergency Department; Reason: Recheck today's complaints, Continuance of care. Problem is new. Symptoms have improved. rn
[2019-05-26 09:26] VITALS: TEMP 99.3
[2019-05-26 09:29] VITALS: BP 114/71; O2SAT 97
== END 2019-05-26 08:15 | disposition home or self-care (01) ==
LOC: ER 04:41
DX: A08.4 Viral intestinal infection, unspecified (principal); F41.8 Other specified anxiety disorders
CPT/HCPCS: 96361; 85025; 80048; 36415; 80076; 83690; 87804 ×2; 96374; 99284; J7030; J2405